=== PATIENT | female | born 1980 | race Caucasian/White ===

== ENCOUNTER → 2019-02-02 | Day surgery (SDC) | payer BC ==
[~2019-02-02] MED LIST: CITALOPRAM HBR20 MG PO; FENTANYL CITRATE/PF 100MCG/2 ML INJ ONE; GLUCAGON FOR INJ 1 MG VIAL ONE; HAIR, SKIN & N1 EAC1; HYOSCYAMINE SULFATE 0.5 MG/ML INJ ONE; IMMUNE BOOSTER PO; MIDAZOLAM HCL 2 MG/2 ML VIAL ONE; MULTI-VITAMIN1 EACH; PROPOFOL IV EMULSION 10 MG/ML 50 ML VIAL ONE
--- OUTSIDE RECORDS SUMMARY | 2019-02-02 05:48 | XMS REPORT | Clinical Summary ---
Author Author [facility] Organization [facility] Address Unknown Phone Unavailable Care Team Providers Care Candy Spreader Helper Name Role Phone Breann Coats PA-C PCP Allergies No Known Allergies Medications End Date Status Medication Sig Dispensed Refills Start Date Active citalopram (CeleXA) 20 MG Take 20 mg by 0 tablet mouth daily. Active NON FORMULARY Take 150 mg 0 by mouth nightly. Bio-TE DIN Active NATURE-THROID 65 mg TAKE 1 TABLET 0 tablet BY MOUTH 8 EVERY MORNING 30MINS BEFORE MEALS Active clonAZEPAM (KlonoPIN) 0.5 Take 0.5 mg 0 MG tablet by mouth 2 8 (two) times a day as needed. Active VITAMIN D2 50,000 unit Take 50,000 2 capsule Units by 8 mouth once a week. Active valACYclovir (VALTREX) TAKE 1 TABLET 1 500 MG tablet (500 MG) BY [address] 2 TIMES PER DAY FOR 3 DAYS NEEDED FOR OUTBREAK Active multivitamin with Take 1 tablet 0 minerals tablet by mouth daily. Active UNABLE TO FIND Genius 0 mushroom 09/01/2018 Discontinued diclofenac (VOLTAREN) 50 Take 50 mg by 0 MG EC tablet mouth 2 (two) times a day. 12/05/2018 Discontinued acetaminophen-codeine Take 1 tablet 0 (TYLENOL WITH CODEINE #3) by mouth 300-30 mg per tablet every 4 (four) hours as needed for mild pain or moderate pain. 09/01/2018 Discontinued levoFLOXacin (LEVAQUIN) Take 500 mg 0 500 MG tablet by mouth daily. 09/01/2018 Discontinued ondansetron (ZOFRAN) 4 MG Take 4 mg by 0 tablet mouth every 8 (eight) hours as needed for nausea or vomiting. 09/16/2018 Discontinued thyroid, pork, (ARMOUR Take 60 mg by 0 THYROID) 60 mg tablet mouth daily. 09/16/2018 Discontinued levothyroxine (SYNTHROID, Take 65 mcg 0 LEVOXYL) 75 mcg tablet by mouth every morning. 09/01/2018 fluconazole (DIFLUCAN) Take 1 tablet 2 tablet 0 150 MG tablet (150 mg 8 total) by mouth once for 1 dose. 09/11/2018 cefdinir (OMNICEF) 300 MG Take 1 20 capsule 0 capsule capsule (300 8 mg total) by mouth 2 (two) times a day for 10 days. 09/24/2018 oxybutynin (DITROPAN) 5 Take 1 tablet 20 tablet 0 MG tablet (5 mg total) 8 by mouth 3 (three) times a day as needed for bladder spasms for up to 7 days. 09/20/2018 phenazopyridine Take 1 tablet 20 tablet 0 (PYRIDIUM) 200 MG tablet (200 mg 8 total) by mouth 3 (three) times a day as needed for bladder spasms (dysuria) for up to 3 days. 09/22/2018 traMADol (ULTRAM) 50 mg Take 1 tablet 20 tablet 0 tablet (50 mg total) 8 by mouth every 8 (eight) hours as needed for moderate pain for up to 5 days. 10/16/2018 ciprofloxacin (CIPRO) 500 Take 1 tablet 1 tablet 0 MG tablet (500 mg 8 total) by mouth once for 1 dose. 11/27/2018 ciprofloxacin (CIPRO) 500 Take 1 tablet 14 tablet 0 MG tablet (500 mg 9 total) by mouth 2 (two) times a day for 7 days. 11/30/2018 fluconazole (DIFLUCAN) Take 1 tablet 5 tablet 1 150 MG tablet (150 mg 9 total) by mouth daily for 5 days. 12/27/2018 Discontinued sulfamethoxazole-trimetho Take 1 tablet 30 tablet 0 prim (BACTRIM) 400-80 mg by mouth 9 per tablet daily for 30 days. 01/10/2019 oxybutynin (DITROPAN) 5 Take 1 tablet 42 tablet 0 MG tablet (5 mg total) 9 by mouth every 8 (eight) hours for 14 days. 01/01/2019 nitrofurantoin, Take 1 10 capsule 0 macrocrystal-monohydrate, capsule (100 9 (MACROBID) 100 MG capsule mg total) by mouth 2 (two) times a day for 5 days. 01/06/2019 traMADol (ULTRAM) 50 mg Take 1 tablet 21 tablet 0 tablet (50 mg total) 9 by mouth every 6 (six) hours as needed for moderate pain for up to 21 doses. 01/13/2019 nitrofurantoin, Take 1 14 capsule 0 macrocrystal-monohydrate, capsule (100 9 (MACROBID) 100 MG capsule mg total) by mouth 2 (two) times a day for 7 days. 01/21/2019 traMADol (ULTRAM) 50 mg Take 1 tablet 8 tablet 0 tablet (50 mg total) 9 by mouth every 6 (six) hours as needed for moderate pain for up to 2 days. Status Hospital, Clinic, or Ordered Dose Route Frequency Start End Date Other Facility Date Administered Medication Ended gentamicin (GARAMYCIN) 80 mg IM once 01/21/20 injection 80 19 9 mgIndications: Retained ureteral stent, Post-operative state Active Problems Problem Noted Date Ureteral stricture, left 12/26/2018 Hydronephrosis with ureteral stricture, not elsewhere classified 08/29/2018 Mass of cecum 08/29/2018 Sepsis 08/28/2018 Encounters Care Team Description Date Type Specialty Regina Medrano MD Post-operative state (Primary Dx); Retained ureteral stent; Hydronephrosis with urinary obstruction due to ureteral calculus 01/28/2019 Orders Only Urology Regina Medrano MD Retained ureteral stent (Primary Dx); Post-operative state 01/20/2019 Procedure visit Regina Nagel MD 01/20/2019 Telephone Regina Nagel MD 01/20/2019 Transcribe Access Orders Regina Medrano MD 01/19/2019 Telephone Regina Nagel MD 01/14/2019 Telephone Regina Nagel MD Post-operative state (Primary Dx) 01/06/2019 Office Visit Urology Regina Medrano MD Hydronephrosis with urinary obstruction due to ureteral calculus; Hydronephrosis with ureteral stricture, not elsewhere classified 01/05/2019 Hospital Radiology Encounter Regina Medrano MD Hydronephrosis with urinary obstruction due to ureteral calculus (Primary Dx); Hydronephrosis with ureteral stricture, not elsewhere classified 12/31/2018 Orders Only Urology Regina Medrano MD 12/30/2018 Telephone Urology Regina Medrano MD ROBOTIC ASSISTED LEFT URETERAL REIMPLANT, LEFT URETERAL STENT PLACEMENT, PSOAS HITCH 12/26/2018 Surgery Urology Anni Koenig MD 12/26/2018 Anesthesia Urology Event Regina Medrano MD 12/26/2018 [facility] General Internal Medicine - Encounter 12/27/2018 Regina Medrano MD Preop examination (Primary Dx) 12/08/2018 Pre-Admit Pre-Admission Testing Testing Appointment Rina Cintron MA Urinary tract infection without hematuria, site unspecified (Primary Dx) 11/20/2018 Orders Only General Surgery Jay Ham MD Hydronephrosis with urinary obstruction due to ureteral calculus (Primary Dx); Hydronephrosis with ureteral stricture, not elsewhere classified 11/18/2018 Office Visit UrologJay Luna MD Hydronephrosis with urinary obstruction due to ureteral calculus 11/17/2018 Hospital Radiology Encounter Rina Cintron MA Hydronephrosis with renal and ureteral calculous obstruction (Primary Dx) 10/27/2018 Orders Only Urology Jay Ham MD Hydronephrosis with urinary obstruction due to ureteral calculus (Primary Dx) 10/16/2018 Procedure visit UrologJay Luna MD 09/18/2018 Telephone Urology Lucero Chavez MD 09/17/2018 Anesthesia General Surgery Event Jay Ham MD CYSTO, URETEROSCOPY w/ Balloon Dilation of Ureteral Or Laser Incision of Ureteral Stricture-Left 09/17/2018 Surgery General Surgery Jay Ham MD Preop testing (Primary Dx); Hydronephrosis with ureteral calculus 09/17/2018 Hospital General Surgery Encounter Lucero Chavez MD 08/29/2018 Anesthesia General Surgery Event Jay Ham MD Cysto, Left Retrograde Pyelogram, Left Ureteral Stent Placement 08/29/2018 Surgery General Surgery Nazario Titus MD Sepsis, due to unspecified organism (HCC) (Primary Dx); Hydronephrosis with urinary obstruction due to ureteral calculus; Mass of cecum 08/28/2018 [facility] General Internal Medicine - Encounter 09/01/2018 Nazario Titus MD 08/28/2018 Orders Only General Internal Medicine after 02/01/2018 Immunizations Name Dates Previously Given Next Due FLUCELVAX QUAD PF (0.5mL 08/31/2018 syringe) Pneumococcal 08/31/2018 Polysaccharide Family History Medical History Relation Name Comments Hypertension Brother Diabetes Father Hypertension Father Miscarriages / Maternal Stillbirths Grandmother Diabetes Mother Hyperlipidemia Mother Diabetes Paternal Grandmother Stroke Paternal Grandmother Relation Name Status Comments Brother Alive Father Alive Maternal Grandmother Alive Mother Alive Paternal Grandmother Social History Date Tobacco Use Types Packs/Day Years Used Quit: 08/29/2015 Former Smoker Cigarettes 1 12 Smokeless Tobacco: Never Used Alcohol Use Drinks/Week oz/Week Comments Yes occasionally Sex Assigned at Date Recorded Not on file Industry Job Start Date Occupation Not on file Not on file Not on file Travel End Travel History Travel Start No recent travel history available. Last Filed Vital Signs Time Taken Vital Sign Reading 12/27/2018 7:58 AM MR TEACHER Blood Pressure 111/70 12/27/2018 7:58 AM MR TEACHER Pulse 60 12/27/2018 7:58 AM MR TEACHER Temperature 35.7 C (96.3 F) 12/27/2018 7:58 AM MR TEACHER Respiratory Rate 20 12/27/2018 7:58 AM MR TEACHER Oxygen Saturation 98% - Inhaled Oxygen - Concentration 12/26/2018 6:22 AM MR TEACHER Weight 83.6 kg (184 lb 6 oz) 12/26/2018 6:22 AM MR TEACHER Height 160 cm (5' 3") 12/26/2018 6:22 AM MR TEACHER Body Mass Index 32.66 Plan of Treatment Care Team Description Date Type Specialty Regina Medrano MD [address] [place] [address] [phone] 03/23/2019 Appointment Radiology Regina Medrano MD [address] [place] [address] 03/23/2019 Appointment Radiology Regina Medrano MD [address] [place] [address] 03/30/2019 Office Visit Urology Health Maintenance Due Date Last Done Comments CERVICAL CANCER SCREENING 2003 INFLUENZA VACCINE 05/21/2019 08/31/2018 Implants Device Identifier Shelf Expiration Date Model / Serial / Lot Implanted Type Area Manufactur er 07/02/2021 225 [id number] / / [id number] Kit Dilat Cath Baln 18fr 5.8fr Surgical Left: Ureter, MICROVASIV 0.038in [id number] 1.9x6mm - Implants; Lime E [id number] Expanders; Implanted: Qty: 1 on 09/17/2018 by Extenders; Jay Ham MD Surgical Wires [id number] / / Clip Ligtng Hem-O-Kurt Endoscpc Aplr Surgical N/A: N/A WECK [facility] - [id number] Implants; CLOSURE Implanted: Qty: 1 on 12/26/2018 by Expanders; SYSTEMS Regina Medrano MD Extenders; Surgical Wires 12/26/2020 [id number] / / [id number] Stent Set Ureteral Universa Firm Surgical Left: Ureter, COOK 7fr X 28cm - [id number] Stents Lime UROLOGICAL Implanted: 08/29/2018 (Quantity not on file) 04/20/2021 [id number] / / [id number] Stent Uretl Polrs Ult 2drmtr 7fr Urological N/A: N/A BSC 26cm Hydroplus W/O Gw - [id number] Implants UROLOGY Implanted: Qty: 1 on 09/17/2018 by or Sets Jay Ham MD 10/26/2021 [id number] / / [id number] Stent Uretl Polrs Ult 2drmtr 6fr Urological N/A: N/A BSC 26cm Hydroplus W/O Gw - [id number] Implants UROLOGY Implanted: Qty: 1 on 12/26/2018 by or Regina Irby MD Procedures Comments Procedure Name Priority Date/Time Associated Diagnosis POC URINALYSIS DIPSTICK Routine 01/20/2019 Retained ureteral stent 8:47 AM CDT URINE CULTURE Routine 01/06/2019 Post-operative state 12:19 PM CDT POC UROFLOWMETRY Routine 01/06/2019 Post-operative state 12:17 PM CDT [id number] Routine 01/06/2019 Post-operative state 12:16 PM CDT FL CYSTOGRAM MINIMUM 3 VW Routine 01/05/2019 Hydronephrosis with 10:11 AM CDT urinary obstruction due to ureteral calculus Hydronephrosis with ureteral stricture, not elsewhere classified ESTIMATED GFR Routine 12/27/2018 4:56 AM MR TEACHER BASIC METABOLIC PANEL Routine 12/27/2018 4:56 AM MR TEACHER HC COMPLETE BLD COUNT Routine 12/27/2018 W/AUTO DIFF 4:50 AM MR TEACHER XR ABDOMEN 1 VW PORTABLE STAT 12/26/2018 1:39 PM MR TEACHER ESTIMATED GFR STAT 12/26/2018 11:30 AM MR TEACHER BASIC METABOLIC PANEL STAT 12/26/2018 11:30 AM MR TEACHER HC COMPLETE BLD COUNT STAT 12/26/2018 W/AUTO DIFF 11:30 AM MR TEACHER TX AN ELECTIVE Routine 12/26/2018 ENDOTRACHEAL AIRWAY 7:59 AM MR TEACHER Procedure Note - Gita Neville CRNA - 12/26/2018 7:59 AM MR TEACHER Airway Date/Time: 12/26/2018 8:00 AM Performed by: Gita Neville CRNA Authorized by: Anni Koch MD Location: OR Urgency: Elective Anesthesio logist: Anni Koch MD Resident/C RNA/AA: Gita Neville CRNA Preoxygena oniel with 100% O2: Yes C-spine Precaution s Maintained Throughout : Yes Mask Ventilatio n: Easy mask Final Airway Type: Endotrache al airway Final Endotrache al Airway: ETT Technique Used: Direct laryngosco py Devices/Me thods Used in Placement: Intubatin g stylet Insertion Site: Oral Blade Type: Mcmahon Laryngosco pe Blade/Vide olaryngosc ope Blade Size: 2 ETT Size (mm): 7.0 Measured from: Lips ETT to Lips (cm): 22 Placement Verified by: CO2 detection, direct visualizat ion and equal breath sounds Laryngosco pic view: Grade I - full view of glottis Rapid Sequence Induction (RSI): No Number of Attempts at Approach: 1 Eyes taped after LOLR, atraumatic DL, lips and teeth unchanged from preop conditions REIMPLANTATION, URETER, 12/26/2018 Ureteral stricture, left LAPAROSCOPIC, 7:30 AM MR TEACHER ROBOT-ASSISTED Case Notes XI Special Needs XI, POSSIBLE EXTENDED RECOVERY ESTIMATED GFR Routine 12/08/2018 9:16 AM MR TEACHER BASIC METABOLIC PANEL Routine 12/08/2018 Preop examination 9:16 AM MR TEACHER PARTIAL THROMBOPLASTIN Routine 12/08/2018 Preop examination TIME (PTT) 9:16 AM MR TEACHER PROTHROMBIN TIME WITH INR Routine 12/08/2018 Preop examination 9:16 AM MR TEACHER TYPE AND SCREEN Routine 12/08/2018 Preop examination 9:16 AM MR TEACHER CBC HEMOGRAM Routine 12/08/2018 Preop examination 9:16 AM MR TEACHER URINALYSIS, AUTOMATED Routine 11/25/2018 Hydronephrosis with WITH MICROSCOPY 3:38 PM MR TEACHER urinary obstruction due to ureteral calculus URINE CULTURE Routine 11/25/2018 Hydronephrosis with 3:38 PM MR TEACHER urinary obstruction due to ureteral calculus POC URINALYSIS DIPSTICK Routine 11/25/2018 Hydronephrosis with 1:31 PM MR TEACHER urinary obstruction due to ureteral calculus URINE CULTURE Routine 11/20/2018 Urinary tract infection 11:41 AM MR TEACHER without hematuria, site unspecified NM RENAL SCAN WFLOW FUNCT Routine 11/17/2018 Hydronephrosis with SGL INT W/MAG 3 10:33 AM MR TEACHER urinary obstruction due to ureteral calculus CYSTO W/STENT REMOVAL Routine 10/16/2018 Hydronephrosis with SIMPLE 11:30 AM MR TEACHER urinary obstruction due to ureteral calculus TX AN ELECTIVE Routine 09/17/2018 SUPRAGLOTTIC AIRWAY 3:00 PM MR TEACHER Procedure Note - Nguyen Day CRNA - 09/17/2018 3:00 PM MR TEACHER ANESTHESIA INTUBATION Performed by: Nguyen Day CRNA Authorized by: Nguyen Day CRNA Location: OR Urgency: Elective Anesthesio logist: Lucero Chavez MD Resident/C RNA/AA: Nguyen Day CRNA Preoxygena oniel with 100% O2: Yes C-spine Precaution s Maintained Throughout : Yes Mask Ventilatio n: Easy mask Final Airway Type: Supraglott ic airway Final LMA: Unique SURGICAL PATHOLOGY Routine 09/17/2018 REQUEST 8:55 AM MR TEACHER ESTIMATED GFR Routine 08/31/2018 5:40 AM MR TEACHER HC COMPLETE BLD COUNT Routine 08/31/2018 W/AUTO DIFF 5:40 AM MR TEACHER BASIC METABOLIC PANEL Routine 08/31/2018 5:40 AM MR TEACHER THYROID STIMULATING Routine 08/30/2018 HORMONE 4:[address] ABDOMEN PELVIS W WO Routine 08/29/2018 CONTRAST 8:03 PM MR TEACHER FL < 1 HOUR Routine 08/29/2018 5:41 PM MR TEACHER TX AN ELECTIVE Routine 08/29/2018 SUPRAGLOTTIC AIRWAY 5:18 PM MR TEACHER Procedure Note - Arabella Chau CRNA - 08/29/2018 5:18 PM MR TEACHER Airway Date/Time: 08/29/2018 5:13 PM Performed by: ARABELLA CHAU Authorized by: LUCERO CHAVEZ Location: OR Urgency: Elective Difficult Airway: No Resident/C RNA/AA: ARABELLA CHAU Performed by: resident/C RNA/AA Preoxygena oniel with 100% O2: Yes C-spine Precaution s Maintained Throughout : Yes Mask Ventilatio n: Not attempted Final Airway Type: Supraglott ic airway Final LMA: Classic LMA Size: 4 Number of Attempts at Approach: 1 HCG QUALITATIVE, SERUM STAT 08/29/2018 SCREEN 5:23 AM MR TEACHER CARCINOEMBRYONIC ANTIGEN Routine 08/29/2018 (CEA) 5:23 AM MR TEACHER ESTIMATED GFR Timed 08/29/2018 5:23 AM MR TEACHER BASIC METABOLIC PANEL Timed 08/29/2018 5:23 AM MR TEACHER HC COMPLETE BLD COUNT Timed 08/29/2018 W/AUTO DIFF 5:23 AM MR TEACHER LACTIC ACID LEVEL Timed 08/29/2018 5:23 AM MR TEACHER LACTIC ACID LEVEL, SEPSIS Timed 08/29/2018 - NOW AND REPEAT 2X EVERY 2:30 AM MR TEACHER 3 HOURS LACTIC ACID LEVEL, SEPSIS Timed 08/28/2018 - NOW AND REPEAT 2X EVERY 11:19 PM MR TEACHER [address] ABDOMEN PELVIS WO STAT 08/28/2018 CONTRAST 9:53 PM MR TEACHER URINALYSIS SCREEN AND Routine 08/28/2018 MICROSCOPY, WITH REFLEX 8:35 PM MR TEACHER TO CULTURE GRAM STAIN Routine 08/28/2018 8:35 PM MR TEACHER URINE CULTURE Routine 08/28/2018 8:35 PM MR TEACHER MANUAL DIFFERENTIAL Timed 08/28/2018 7:44 PM MR TEACHER ESTIMATED GFR Timed 08/28/2018 7:44 PM MR TEACHER LACTIC ACID LEVEL, SEPSIS Timed 08/28/2018 - NOW AND REPEAT 2X EVERY 7:44 PM MR TEACHER 3 HOURS COMPREHENSIVE METABOLIC Timed 08/28/2018 PANEL 7:44 PM MR TEACHER CBC WITH PLATELET AND Timed 08/28/2018 DIFFERENTIAL 7:44 PM MR TEACHER BLOOD CULTURE, AEROBIC & Routine 08/28/2018 ANAEROBIC 7:44 PM MR TEACHER BLOOD CULTURE, AEROBIC & Routine 08/28/2018 ANAEROBIC 7:41 PM MR TEACHER after 02/01/2018 Results * POC urinalysis dipstick (01/20/2019 8:47 AM CDT) Only the most recent of 2 results within the time period is included. Color urine, POC Yellow Clarity urine, POC Clear Glucose urine, POC Negative Negative Bilirubin urine, POC Negative Negative Ketones urine, POC Negative Negative Specific gravity urine, 1.015 1.005 - 1.030 POC Blood urine, POC Moderate (A) Negative pH urine, POC 7.0 5.0, 5.5, 6.0, 6.5, 7.0, 7.5, 8.0, 8.5 Protein urine, POC 1+ (A) Negative Urobilinogen urine, POC <2.0 <2.0 Nitrite urine, POC Negative Negative Leukocyte esterase urine, Large (A) Negative POC Specimen Urine * Urine culture (01/06/2019 12:19 PM CDT) Only the most recent of 4 results within the time period is included. Urine culture SEE NOTE [employer] Comment: [place] CULTURE, URINE, ROUTINE MICRO NUMBER:[id number] TEST STATUS: FINAL SPECIMEN SOURCE: NOT GIVEN SPECIMEN QUALITY:ADEQUATE RESULT: No Growth Specimen Urine Resulting Agency Comment Performing Organization Information: Site ID: [id number] Address: [address] [place] [id number] Director: Heidi Arriola Performing Organization Address City/State/Zipcode Phone Number [email or web address] [place] [phone] * POC uroflowmetry (01/06/2019 12:17 PM CDT) Flow rate 13 ml/s ml/sec Specimen Urine Impressions Performed At Peak Flow 13 ml/s Mean Flow 3 ml/s Voiding Time 47 sec Flow Time 16 sec Time to Peak Flow 4 sec Voided Volume 51 ml PVR 17 ml * POC BLADDER SCAN/PVR (01/06/2019 12:16 PM CDT) Volume 17mlComment: pvr Specimen Urine * FL Cystogram [place] 3 Views (01/05/2019 10:11 AM CDT) Narrative Performed At EXAMINATION:FL CYSTOGRAM MINIMUM 3 VW RADIANT CLINICAL HISTORY:N13.2 Hydronephrosis with renal and ureteral calculous obstruction, N13.1 Hydronephrosis with ureteral stricturenot elsewhere classified, post op state COMPARISON:None. TECHNIQUE: Cystogram was performed. Contrast was instilled into the bladder in a retrograde manner via Alex catheter. FLUOROSCOPIC TIME:0.3 minutes, 10 images, 71.23 mGy. FINDINGS: The bladder is normally distensible. The left ureteral catheter is present distal loop overlying the urinary bladder, proximal loop about the renal pelvis. No anastomotic leak is detected at the insertion site of the left ureter postoperatively. No filling defect, diverticulum or vesicoureteral reflux. No significant residual is seen in the bladder on post void image. IMPRESSION: No leak status post left ureteral re-implantation. I personally reviewed the images and the resident's findings and agree with the final report. [facility]-[id number] Procedure Note Interface, Radiology Results Incoming - 01/05/2019 10:41 AM CDT EXAMINATION: FL CYSTOGRAM MINIMUM 3 VW CLINICAL HISTORY: N13.2 Hydronephrosis with renal and ureteral calculous obstruction, N13.1 Hydronephrosis with ureteral stricture not elsewhere classified, post op state COMPARISON: None. TECHNIQUE: Cystogram was performed. Contrast was instilled into the bladder in a retrograde manner via Alex catheter. FLUOROSCOPIC TIME: 0.3 minutes, 10 images, 71.23 mGy. FINDINGS: The bladder is normally distensible. The left ureteral catheter is present distal loop overlying the urinary bladder, proximal loop about the renal pelvis. No anastomotic leak is detected at the insertion site of the left ureter postoperatively. No filling defect, diverticulum or vesicoureteral reflux. No significant residual is seen in the bladder on post void image. IMPRESSION: No leak status post left ureteral re-implantation. I personally reviewed the images and the resident's findings and agree with the final report. [facility]-[id number] Performing Organization Address City/[facility]/[place] [address] * Estimated GFR (12/27/2018 4:56 AM MR TEACHER) Only the most recent of 6 results within the time period is included. Estimated GFR 84 mL/min/1.73 m2 [facility] Comment: HOSPITAL CatergoryUnitsInte rpretation G1 >=90 Normal or high G2 60-89Mildly decreased [id number] Mildly to moderately decreased E5o47-52 Moderately to severely decreased G4 15-29Severely decreased G5 <15Kidney failure The eGFR was calculated using the Chronic Kidney Disease Epidemiology Collaboration (CKD-EPI) equation. Interpretation is based on recommendations of the National Kidney Foundation-Kidney Disease Outcomes Quality Initiative (NKF-KDOQI) published in 2014. Specimen Plasma specimen Performing Organization Address [facility] Phone Number [facility] [place] [address] PATHOLOGY AND [facility] MEDICINE [address] * Basic metabolic panel (12/27/2018 4:56 AM MR TEACHER) Only the most recent of 5 results within the time period is included. Sodium 139 135 - 148 mEq/L [facility] Potassium 4.1 3.5 - 5.0 mEq/L [facility] Chloride 105 98 - 112 mEq/L [facility] CO2 23 (L) 24 - 31 mEq/L [facility] Anion gap 11@ANIO 7 - 15 mEq/L [facility] BUN 13 6 - 20 mg/dL [facility] Creatinine 0.88 0.50 - 0.90 mg/dL [facility] Glucose 113 (H) 65 - 99 mg/dL [facility] Calcium 9.0 8.3 - 10.2 mg/dL [facility] Specimen Plasma specimen Performing Organization Address City/[facility] Phone Number [facility] [place] [address] PATHOLOGY AND GENOMIC MEDICINE [address] * CBC with platelet and differential (12/27/2018 4:50 AM MR TEACHER) Only the most recent of 5 results within the time period is included. WBC 13.65 (H) 4.50 - 11.00 k/uL [facility] RBC 3.79 (L) 4.20 - 5.50 m/uL [facility] HGB 11.2 (L) 12.0 - 16.0 g/dL [facility] HCT 35.1 (L) 37.0 - 47.0 % [facility] MCV 92.6 82.0 - 100.0 fL [facility] MCH 29.6 27.0 - 34.0 pg [facility] MCHC 31.9 31.0 - 37.0 g/dL [facility] RDW - SD 43.7 37.0 - 55.0 fL [facility] MPV 9.7 8.8 - 13.2 fL [facility] Platelet count 236 150 - 400 k/uL [facility] Nucleated RBC 0.00 /100 WBC [facility] Neutrophils 79.5 (H) 39.0 - 69.0 % [facility] Lymphocytes 11.4 (L) 25.0 - 45.0 % [facility] Monocytes 8.5 0.0 - 10.0 % [facility] Eosinophils 0.1 0.0 - 5.0 % [facility] Basophils 0.1 0.0 - 1.0 % [facility] Immature granulocytes 0.4Comment: "Immature 0.0 - 1.0 % [facility] granulocytes" (promyelocytes, HOSPITAL myelocytes, metamyelocytes) Specimen Blood Performing Organization Address City/State/Zipcode Phone Number [facility] DEPARTMENT OF [address] [place] [address] PATHOLOGY [place] [address] HOSPITAL * XR Abdomen 1 Vw Portable (12/26/2018 1:39 PM MR TEACHER) Narrative Performed At EXAM:XR ABDOMEN 1 VW PORTABLE RADIANT HISTORY:Abd painunspecified, Stent Placement COMPARISON:CT the abdomen and pelvis dated 08/29/2018 IMPRESSION: 1. Bowel gas pattern is nonobstructive. 2. The visualized osseous structures are intact. 3. A left double-J ureteral stent is in place. A drainage catheter projects over the left abdomen. [facility]-[id number] Procedure Note Interface, Radiology Results Incoming - 12/26/2018 1:51 PM MR TEACHER EXAM: XR ABDOMEN 1 VW PORTABLE HISTORY: Abd pain unspecified, Stent Placement COMPARISON: CT the abdomen and pelvis dated 08/29/2018 IMPRESSION: 1. Bowel gas pattern is nonobstructive. 2. The visualized osseous structures are intact. 3. A left double-J ureteral stent is in place. A drainage catheter projects over the left abdomen. [facility]-[id number] Performing Organization Address [facility] Services[facility] Phone Number [facility] [address] [place] [address] * Partial thromboplastin time, activated (12/08/2018 9:16 AM MR TEACHER) PTT 31.6 23.0 - 36.0 sec [facility] Comment: HOSPITAL PTT therapeutic range for unfractionated heparin is 61.0-112.0 seconds which corresponds to Anti-Xa 0.3-0.7 U/ml. Specimen Blood Performing Organization Address [facility] Phone Number [facility] [place] [place] [address] PATHOLOGY AND GENOMIC MEDICINE [address] * Prothrombin time with INR (12/08/2018 9:16 AM MR TEACHER) Prothrombin time 12.9 11.5 - 14.5 sec [facility] INR 1.0 [facility] Comment: HOSPITAL The International Normalized Ratio (INR) is a therapeutic monitoring tool for patients who are stable on oral anticoagulant therapy. An INR of 2.0-3.0 is suggested for deep vein thrombosis/pulmonary embolism. Specimen Blood Performing Organization Address [facility] Phone Number [facility] DEPARTMENT OF [address] [place] [address] PATHOLOGY AND GENOMIC MEDICINE [address] * CBC hemogram (12/08/2018 9:16 AM MR TEACHER) WBC 5.42 4.50 - 11.00 k/uL [facility] RBC 4.14 (L) 4.20 - 5.50 m/uL [facility] HGB 12.2 12.0 - 16.0 g/dL [facility] HCT 37.3 37.0 - 47.0 % [facility] MCV 90.1 82.0 - 100.0 fL [facility] MCH 29.5 27.0 - 34.0 pg [facility] MCHC 32.7 31.0 - 37.0 g/dL [facility] RDW - SD 42.1 37.0 - 55.0 fL [facility] MPV 9.7 8.8 - 13.2 fL [facility] Platelet count 279 150 - 400 k/uL [facility] Nucleated RBC 0.00 /100 WBC [facility] Specimen Blood Performing Organization Address City/[facility] Servicescode Phone Number [facility] [place] [address] PATHOLOGY AND GENOMIC MEDICINE [address] * Type and screen (12/08/2018 9:16 AM MR TEACHER) ABO grouping A [facility] Rh type POS [facility] Antibody screen (gel) NEG [facility] Specimen Blood Performing Organization Address [facility] Servicescowv Phone Number [facility] [place] [address] PATHOLOGY AND GENOMIC MEDICINE [address] * Urinalysis, automated with microscopy (11/25/2018 3:38 PM MR TEACHER) Color, UA YELLOW YELLOW [facility] Appearance CLEAR CLEAR [facility] Specific gravity, urine 1.007 1.001 - 1.035 [facility] pH, urine 6.5 5.0 - 8.0 [facility] Glucose, urine NEGATIVE NEGATIVE [facility] Bilirubin, UA NEGATIVE NEGATIVE [facility] Ketones, UA NEGATIVE NEGATIVE [facility] Occult blood, urine NEGATIVE NEGATIVE [facility] Protein, UA NEGATIVE NEGATIVE [facility] Nitrite, UA NEGATIVE NEGATIVE [facility] Leukocyte esterase, UA TRACE (A) NEGATIVE [facility] WBC, UA 0-5 < OR=5 /HPF [facility] RBC, UA NONE SEEN < OR=2 /HPF [facility] Squamous epithelial NONE SEEN < OR=5 /HPF [facility] cells, [facility]A [place] Bacteria, UA NONE SEEN NONE SEEN /HPF [facility] Hyaline casts, UA NONE SEEN NONE SEEN /LPF [facility] Specimen Urine Resulting Agency Comment Performing Organization Information: Site ID: [id number] Address: [address] [place] [id number] Director: Heidi Arriola Performing Organization Address City/State/[facility] Servicescode Phone Number [email or web address] [address] [address] * NM Renal Scan Wflow Funct Sgl Int W/Mag 3 (11/17/2018 10:33 AM MR TEACHER) Narrative Performed At [facility] Procedure:NM RENAL SCAN WFLOW FUNCT SGL INT W MAG 3 Clinical History:N13.2 Hydronephrosis with renal and ureteral calculous obstruction, left hydronephrosis Comparison:No prior nuclear renal scans. Technique: The patient was injected with 10 millicuries of [id number] intravenously, followed by dynamic imaging of the kidneys in the posterior projection for 40 minutes. At 20 minutes postinjection, the patient was injected with 42 mg Lasix IV. Findings: Moderately reduced perfusion and uptake in the left kidney. Excretion is also reduced, with partial, delayed washout in response to Lasix. Perfusion, uptake, and excretion in the right kidney are normal. Wash-out T(1/2) in response to Lasix=24 min (left kidney) Normal=< 10 min Indeterminate=10-20 min Delayed=>20 min SPLIT FUNCTION: Left kidney=27% Right kidney=73% IMPRESSION: 1.Moderately reduced perfusion and function in the left kidney. 2.Given the reduced function, the reduced excretion from the left collecting system may be physiological. High-grade obstruction is not strongly suggested, but not excluded. Please note that the Lasix renal scan is not very accurate in kidneys with reduced function. 3.Normal perfusion and function in the right kidney with no evidence of obstruction. [facility]-[id number] Procedure Note Interface, Radiology Results Incoming - 11/17/2018 11:31 AM MR TEACHER Procedure: NM RENAL SCAN WFLOW FUNCT SGL INT W MAG 3 Clinical History: N13.2 Hydronephrosis with renal and ureteral calculous obstruction, left hydronephrosis Comparison: No prior nuclear renal scans. Technique: The patient was injected with 10 millicuries of [id number] intravenously, followed by dynamic imaging of the kidneys in the posterior projection for 40 minutes. At 20 minutes postinjection, the patient was injected with 42 mg Lasix IV. Findings: Moderately reduced perfusion and uptake in the left kidney. Excretion is also reduced, with partial, delayed washout in response to Lasix. Perfusion, uptake, and excretion in the right kidney are normal. Wash-out T(1/2) in response to Lasix=24 min (left kidney) Normal=< 10 min Indeterminate=10-20 min Delayed=>20 min SPLIT FUNCTION: Left kidney=27% Right kidney=73% IMPRESSION: 1. Moderately reduced perfusion and function in the left kidney. 2. Given the reduced function, the reduced excretion from the left collecting system may be physiological. High-grade obstruction is not strongly suggested, but not excluded. Please note that the Lasix renal scan is not very accurate in kidneys with reduced function. 3. Normal perfusion and function in the right kidney with no evidence of obstruction. [facility]-[id number] Performing Organization Address City/State/Zipcode Phone Number [facility] [address] [place] [address] * Cysto w/ Stent Removal/Simple (10/16/2018 11:30 AM MR TEACHER) Narrative Performed At Jay Hma MD 10/16/2018 12:11 PM Cysto w/ Stent Removal/Simple Date/Time: 10/16/2018 12:09 PM Performed by: Jay Ham MD Authorized by: Jay Ham MD Consent: Verbal consent obtained. Written consent obtained. Risks and benefits: risks, benefits and alternatives were discussed Consent given by: patient Patient understanding: patient states understanding of the procedure being performed Patient consent: the patient's understanding of the procedure matches consent given Procedure consent: procedure consent matches procedure scheduled Relevant documents: relevant documents present and verified Test results: test results available and properly labeled Required items: required blood products, implants, devices, and special equipment available Patient identity confirmed: verbally with patient and provided demographic data Time out: Immediately prior to procedure a "time out" was called to verify the correct patient, procedure, equipment, pc support specialist and site/side marked as required. Preparation: Patient was prepped and draped in the usual sterile fashion. Local anesthesia used: yes Anesthesia: Local anesthesia used: yes Local Anesthetic: lidocaine/prilocaine emulsion Sedation: Patient sedated: no Patient tolerance: Patient tolerated the procedure well with no immediate complications Comments: Flexible cystoscope was advanced into the bladder.The ureteral stent was identified, grasped and extracted intact.Patient tolerated procedure well. * Surgical pathology request (09/17/2018 8:55 AM MR TEACHER) [facility] DEPARTMENT OF PATHOLOGY AND GENOMIC MEDICINE Surgical pathology report See link below for PDF Lab [facility] DEPARTMENT OF Report PATHOLOGY AND GENOMIC MEDICINE Result status This is Final Report for [facility] DEPARTMENT OF [id number] PATHOLOGY AND GENOMIC MEDICINE Performing Organization Address City/State/Zipcode Phone Number [address] [address] PATHOLOGY AND GENOMIC MEDICINE * Thyroid stimulating hormone (08/30/2018 4:25 AM MR TEACHER) TSH 0.33 0.27 - 4.20 uIU/mL [facility] DEPARTMENT OF PATHOLOGY AND GENOMIC MEDICINE Specimen Plasma specimen Performing Organization Address City/[facility] Servicescode Phone Number [place] [phone] PATHOLOGY AND GENOMIC MEDICINE * CT Abdomen Pelvis W Wo Contrast (08/29/2018 8:03 PM MR TEACHER) Narrative Performed At EXAMINATION:CT ABDOMEN PELVIS W WO CONTRAST [facility] CLINICAL HISTORY:Nauseavomiting, left hydronephrosis TECHNIQUE: CT of the abdomen and pelvis was performed without contrast utilizing renal stone protocol. Subsequently, postcontrast CT of the abdomen and pelvis was obtained with multiphase renal mass and CT urogram protocol. Sagittal and coronal computerized reformatted images were also obtained. COMPARISON:August 28, 2018 FINDINGS: Abdomen: A stent coils in the left renal pelvis. There is continued moderate left-sided hydronephrosis of this is slightly decreased from prior. The left kidney remains edematous Atelectasis in the lung bases The liver, spleen, gallbladder, pancreas and adrenals are within normal limits The small bowel and the colon are within normal limits Pelvis: No significant lymphadenopathy, solid masses are present The bladder is distended. Small amount of high density material is present layering inferiorly within the bladder most likely representing contrast IMPRESSION: Interval placement of a left ureteral stent which coils in the left renal pelvis. There is continued moderate left-sided hydronephrosis or masses decreased from prior [facility]-[id number] Procedure Note Hm Interface, Radiology Results Incoming - 08/29/2018 8:12 PM MR TEACHER EXAMINATION: CT ABDOMEN PELVIS W WO CONTRAST CLINICAL HISTORY: Nausea vomiting, left hydronephrosis TECHNIQUE: CT of the abdomen and pelvis was performed without contrast utilizing renal stone protocol. Subsequently, postcontrast CT of the abdomen and pelvis was obtained with multiphase renal mass and CT urogram protocol. Sagittal and coronal computerized reformatted images were also obtained. COMPARISON: August 28, 2018 FINDINGS: Abdomen: A stent coils in the left renal pelvis. There is continued moderate left-sided hydronephrosis of this is slightly decreased from prior. The left kidney remains edematous Atelectasis in the lung bases The liver, spleen, gallbladder, pancreas and adrenals are within normal limits The small bowel and the colon are within normal limits Pelvis: No significant lymphadenopathy, solid masses are present The bladder is distended. Small amount of high density material is present layering inferiorly within the bladder most likely representing contrast IMPRESSION: Interval placement of a left ureteral stent which coils in the left renal pelvis. There is continued moderate left-sided hydronephrosis or masses decreased from prior [facility]-[id number] Performing Organization Address City/[facility] Services[facility] Phone Number [facility] [address] [place] [address] * [place] < 1 Hour (08/29/2018 5:41 PM MR TEACHER) Narrative Performed At IMPRESSION:C-arm Fluoroscopy under 1 hour was provided in the OR for the [facility] referring physician.A radiologist was not present during the procedure. Refer to the Operative report issued by the performing provider for procedure details. Procedure Note Interface, Radiology Results Incoming - 08/29/2018 5:54 PM MR TEACHER IMPRESSION: C-arm Fluoroscopy under 1 hour was provided in the OR for the referring physician. A radiologist was not present during the procedure. Refer to the Operative report issued by the performing provider for procedure details. Performing Organization Address [facility] Servicescode Phone Number [facility] [address] [place] [address] * hCG qualitative, serum screen (08/29/2018 5:23 AM MR TEACHER) hCG qualitative, serum Negative [facility] DEPARTMENT OF Comment: PATHOLOGY AND The manufacturers stated GENOMIC MEDICINE sensitivity of HcG test for serum is >/=10 mIU/ml and urine is >/=20mIU/ml. Specimen Blood Performing Organization Address City/State/Zipcode Phone Number [facility] DEPARTMENT OF [address] [place] [address] PATHOLOGY AND GENOMIC MEDICINE * Lactic acid level (08/29/2018 5:23 AM MR TEACHER) Lactic acid 0.9 0.5 - 2.2 mmol/L [facility] DEPARTMENT OF PATHOLOGY AND GENOMIC MEDICINE Specimen Blood Performing Organization Address City/[facility]/Zipcode Phone Number [facility] DEPARTMENT OF [address] [place] [address] PATHOLOGY AND [facility] MEDICINE * Carcinoembryonic antigen (CEA) (08/29/2018 5:23 AM MR TEACHER) CEA <1.2 0.0 - 3.8 ng/mL [facility] DEPARTMENT OF Comment: PATHOLOGY AND Reference range for heavy [facility] MEDICINE smokers:0.0 - 5.5 ng/mL The GEMMA Cabrera 8000 CEA immunoassay was used. Results obtained with different assay methods or kits should not be used interchangeably and may be different. Specimen Serum Performing Organization Address City/[facility]/Zipcode Phone Number [facility] OF [address] [place] [address] PATHOLOGY AND GENOMIC MEDICINE * Lactic acid level, SEPSIS - Now and repeat 2x every 3 hours (08/29/2018 2:30 AM MR TEACHER) Only the most recent of 3 results within the time period is included. Lactic acid 3.5 (HH) 0.5 - 2.2 mmol/L [facility] DEPARTMENT OF Comment: PATHOLOGY AND Results called to and read [facility] back by ROMELIA CA[employer]LE [employer] SERVICE CONSULTANT, RODRIGUEZ BELTRAN RN/2E at 03:12 08/29/2018 DXP. Specimen Blood Performing Organization Address City/[facility] Servicescode Phone Number [facility] OF [address] [place] [address] PATHOLOGY AND GENOMIC MEDICINE * CT Abdomen Pelvis Wo Contrast (08/28/2018 9:53 PM MR TEACHER) Narrative Performed At CT ABDOMEN PELVIS WO CONTRAST [facility] CLINICAL INDICATION:Abd painunspecified TECHNIQUE:Multidetector CT of the abdomen and pelvis was performed without intravenous contrast with multiplanar reconstructions. CT imaging was performed with iterative reconstruction technique and/or automated exposure control to reduce radiation dose. COMPARISON:None FINDINGS: Please note, the lack of intravenous contrast limits evaluation of the abdominal and pelvic viscera. LOWER THORAX:Aside from mild bibasilar atelectasis, the visualized lungs are clear. LIVER:Normal. BILIARY:Normal. SPLEEN:Normal. PANCREAS:Normal. ADRENALS:Normal. KIDNEYS:There is moderate left hydroureteronephrosis without identification of a urinary tract calculus or obstructing urinary tract lesion. There is associated left renal and perirenal edema. The right kidney is normal in appearance. GI:Large and small bowel are normal in caliber.There are no inflammatory changes.There is a 2.5 x 2.4 cm intraluminal filling defect within the cecum, concerning for a mass. VASCULAR:Unremarkable LYMPH NODES:No enlarged lymph nodes in the abdomen or pelvis. PELVIS:The urinary bladder and uterus are normal in appearance. BONES:There are no acute osseous abnormalities. OTHER:There is no ascites or pneumoperitoneum. IMPRESSION: 1. Moderate left hydroureteronephrosis and left perirenal edema without evidence of a urinary tract calculus or obstructing urinary tract lesion. These findings are suggestive of a recently passed stone with less likely considerations including a urinary tract infection or distal ureteral stricture. If the patient's symptoms persist, a follow-up CT urogram would be recommended for better evaluation of the urinary tract. 2. There is a 2.5 x 2.4 cm intraluminal mass within the cecum that has an imaging appearance favoring an adenoma. Some other possibilities include GIST and carcinoid tumor. Further evaluation is recommended with a colonoscopy. [facility]-[id number] Procedure Note [facility], Radiology Results Incoming - 08/28/2018 10:[address] ABDOMEN PELVIS WO CONTRAST CLINICAL INDICATION: Abd pain unspecified TECHNIQUE: Multidetector CT of the abdomen and pelvis was performed without intravenous contrast with multiplanar reconstructions. CT imaging was performed with iterative reconstruction technique and/or automated exposure control to reduce radiation dose. COMPARISON: None FINDINGS: Please note, the lack of intravenous contrast limits evaluation of the abdominal and pelvic viscera. LOWER THORAX: Aside from mild bibasilar atelectasis, the visualized lungs are clear. LIVER: Normal. BILIARY: Normal. SPLEEN: Normal. PANCREAS: Normal. ADRENALS: Normal. KIDNEYS: There is moderate left hydroureteronephrosis without identification of a urinary tract calculus or obstructing urinary tract lesion. There is associated left renal and perirenal edema. The right kidney is normal in appearance. GI: Large and small bowel are normal in caliber. There are no inflammatory changes. There is a 2.5 x 2.4 cm intraluminal filling defect within the cecum, concerning for a mass. VASCULAR: Unremarkable LYMPH NODES: No enlarged lymph nodes in the abdomen or pelvis. PELVIS: The urinary bladder and uterus are normal in appearance. BONES: There are no acute osseous abnormalities. OTHER: There is no ascites or pneumoperitoneum. IMPRESSION: 1. Moderate left hydroureteronephrosis and left perirenal edema without evidence of a urinary tract calculus or obstructing urinary tract lesion. These findings are suggestive of a recently passed stone with less likely considerations including a urinary tract infection or distal ureteral stricture. If the patient's symptoms persist, a follow-up CT urogram would be recommended for better evaluation of the urinary tract. 2. There is a 2.5 x 2.4 cm intraluminal mass within the cecum that has an imaging appearance favoring an adenoma. Some other possibilities include GIST and carcinoid tumor. Further evaluation is recommended with a colonoscopy. [facility]-[id number] Performing Organization Address City/State/Zipcode Phone Number [place] [address] [place] [address] * Urinalysis screen and microscopy, with reflex to culture (08/28/2018 8:35 PM MR TEACHER) Specimen site Clean catch [facility] DEPARTMENT OF PATHOLOGY AND GENOMIC MEDICINE Color, UA Straw [facility] DEPARTMENT OF PATHOLOGY AND GENOMIC MEDICINE Appearance, UA Clear [facility] DEPARTMENT OF PATHOLOGY AND GENOMIC MEDICINE Specific gravity, UA 1.006 1.001 - 1.035 [facility] DEPARTMENT OF PATHOLOGY AND GENOMIC MEDICINE pH, UA 7.0 5.0 - 8.5 [facility] DEPARTMENT OF PATHOLOGY AND GENOMIC MEDICINE Protein, UA 1+ (A) Negative [facility] DEPARTMENT OF PATHOLOGY AND GENOMIC MEDICINE Glucose, UA Negative Negative [facility] DEPARTMENT OF PATHOLOGY AND GENOMIC MEDICINE Ketones, UA Trace (A) Negative [facility] DEPARTMENT OF PATHOLOGY AND GENOMIC MEDICINE Bilirubin, UA Negative Negative [facility] DEPARTMENT OF PATHOLOGY AND GENOMIC MEDICINE Blood, UA Small (A) Negative [facility] DEPARTMENT OF PATHOLOGY AND GENOMIC MEDICINE Nitrite, UA Negative Negative [facility] DEPARTMENT OF PATHOLOGY AND GENOMIC MEDICINE Urobilinogen, UA Negative <2.0 [facility] DEPARTMENT OF PATHOLOGY AND GENOMIC MEDICINE Leukocyte esterase, UA Small (A) Negative [facility] DEPARTMENT OF PATHOLOGY AND GENOMIC MEDICINE Epithelial cells, UA Few /HPF [facility] DEPARTMENT OF PATHOLOGY AND GENOMIC MEDICINE WBC, UA 8 (H) 0 - 5 /HPF [facility] DEPARTMENT OF PATHOLOGY AND GENOMIC MEDICINE RBC, UA 2 0 - 5 /HPF [facility] DEPARTMENT OF PATHOLOGY AND GENOMIC MEDICINE Bacteria, UA Trace None seen [facility] DEPARTMENT OF PATHOLOGY AND GENOMIC MEDICINE Yeast, UA None seen [facility] DEPARTMENT OF PATHOLOGY AND GENOMIC MEDICINE Yeast with pseudohyphae, None seen [facility] DEPARTMENT OF PATHOLOGY AND GENOMIC MEDICINE Specimen Urine Performing Organization Address City/State/Zipcode Phone Number [facility] DEPARTMENT OF [address] [place] [address] PATHOLOGY AND GENOMIC MEDICINE * Gram stain (08/28/2018 8:35 PM MR TEACHER) Gram stain result Rare WBC's [facility] DEPARTMENT OF No organisms seen PATHOLOGY AND Comment: GENOMIC MEDICINE Specimen Information Specimen Source: Urine Specimen Site: Clean catch Specimen Urine Performing Organization Address City/State/Zipcode Phone Number [facility] DEPARTMENT OF [address] [place] [address] PATHOLOGY AND GENOMIC MEDICINE * Manual differential (08/28/2018 7:44 PM MR TEACHER) Manual differential PERFORMED [facility] DEPARTMENT OF PATHOLOGY AND GENOMIC MEDICINE Neutrophils 85.0 (H) 36.0 - 66.0 % [facility] DEPARTMENT OF PATHOLOGY AND GENOMIC MEDICINE Lymphocytes 6.0 (L) 24.0 - 44.0 % [facility] DEPARTMENT OF PATHOLOGY AND GENOMIC MEDICINE Monocytes 4.0 0.0 - 6.0 % [facility] DEPARTMENT OF PATHOLOGY AND GENOMIC MEDICINE Eosinophils 0.0 0.0 - 6.0 % [facility] DEPARTMENT OF PATHOLOGY AND GENOMIC MEDICINE Basophils 0.0 0.0 - 1.2 % [facility] DEPARTMENT OF PATHOLOGY AND GENOMIC MEDICINE Metamyelocytes 1 0 - 1 % [facility] DEPARTMENT OF PATHOLOGY AND GENOMIC MEDICINE Myelocytes 2 (H) 0 - 1 % [facility] DEPARTMENT OF PATHOLOGY AND GENOMIC MEDICINE Promyelocytes 0 0 - 1 % [facility] DEPARTMENT OF PATHOLOGY AND GENOMIC MEDICINE Reactive lymphocytes 2.0 [facility] DEPARTMENT OF PATHOLOGY AND GENOMIC MEDICINE Platelet slide review Bandar adequate [facility] DEPARTMENT OF PATHOLOGY AND GENOMIC MEDICINE Anisocytosis few [facility] DEPARTMENT OF PATHOLOGY AND GENOMIC MEDICINE Ovalocytes few [facility] DEPARTMENT OF PATHOLOGY AND GENOMIC MEDICINE Smudge cells rare [facility] DEPARTMENT OF PATHOLOGY AND GENOMIC MEDICINE Performing Organization Address City/[facility]/Zipcode Phone Number [facility] DEPARTMENT [address] [place] [address] PATHOLOGY AND GENOMIC MEDICINE * Blood culture, aerobic & anaerobic (08/28/2018 7:44 PM MR TEACHER) Only the most recent of 2 results within the time period is included. Blood culture isolate No growth after 5 days of [facility] incubation. HOSPITAL Comment: Specimen Information Specimen Source: Blood Specimen Site: RAC Specimen Blood Performing Organization Address City/State/Zipcode Phone Number [facility] DEPARTMENT OF [address] [place] [address] PATHOLOGY AND GENOMIC MEDICINE [facility] [address] [place] [address] HOSPITAL * Comprehensive metabolic panel (08/28/2018 7:44 PM MR TEACHER) Sodium 133 (L) 135 - 150 mEq/L [facility] DEPARTMENT OF PATHOLOGY AND GENOMIC MEDICINE Potassium 3.1 (L) 3.5 - 5.0 mEq/L [facility] DEPARTMENT OF PATHOLOGY AND GENOMIC MEDICINE Chloride 95 (L) 98 - 112 mEq/L [facility] DEPARTMENT OF PATHOLOGY AND GENOMIC MEDICINE CO2 25 24 - 31 mmol/L [facility] DEPARTMENT OF PATHOLOGY AND GENOMIC MEDICINE Anion gap 13@ANIO 7 - 15 mEq/L [facility] DEPARTMENT OF PATHOLOGY AND GENOMIC MEDICINE BUN 8 7 - 18 mg/dL [facility] DEPARTMENT OF PATHOLOGY AND GENOMIC MEDICINE Creatinine 1.10 (H) 0.50 - 0.90 mg/dL [facility] DEPARTMENT OF PATHOLOGY AND GENOMIC MEDICINE Glucose 131 (H) 65 - 100 mg/dL [facility] DEPARTMENT OF PATHOLOGY AND GENOMIC MEDICINE Calcium 8.4 8.3 - 10.2 mg/dL [facility] DEPARTMENT OF PATHOLOGY AND GENOMIC MEDICINE Protein 7.2 6.3 - 8.3 g/dL [facility] DEPARTMENT OF PATHOLOGY AND GENOMIC MEDICINE Albumin 3.1 (L) 3.5 - 5.0 g/dL [facility] DEPARTMENT OF PATHOLOGY AND GENOMIC MEDICINE A/G ratio 0.8 0.7 - 3.8 [facility] DEPARTMENT OF PATHOLOGY AND GENOMIC MEDICINE Alkaline phosphatase 68 0 - 104 U/L [facility] DEPARTMENT OF PATHOLOGY AND GENOMIC MEDICINE AST 18 10 - 35 U/L [facility] DEPARTMENT OF PATHOLOGY AND GENOMIC MEDICINE ALT 15 5 - 50 U/L [facility] DEPARTMENT OF PATHOLOGY AND GENOMIC MEDICINE Total bilirubin 1.1 0.2 - 1.2 mg/dL [facility] DEPARTMENT OF PATHOLOGY AND GENOMIC MEDICINE Specimen Plasma specimen Performing Organization Address City/State/Zipcode Phone Number [facility] DEPARTMENT OF [address] [place] [address] PATHOLOGY AND GENOMIC MEDICINE after 02/01/2018 Insurance Payer Benefit Subscriber ID Type Phone Address Plan / Group BCBS BCBS OUT xxxxxxxxxxxxxxx PPO OF STATE Advance Directives Patient has advance care planning documents on file. For more information, elizabeth lucas contact: Esteban Vargas [address] [place] [address]
--- NOTE | 2019-02-02 07:10 | NUR ---
SPIRITUAL CARE - Pre-Surgery Assessment: Pt in bed. Pt's mom at bedside. Pt reported supportive attention from family and friends. Intervention: I provided pastoral presence, hospitality, and sympathetic listening. I acquainted pt with availability of auto brake technician while hospitalized. Outcome: Pt expressed appreciation for visit. No need for follow up indicated at this time. ANDRADE Worthingtonlain Spiritual Care Department O: [phone] Pager: [phone] ([phone] number calling from)
[2019-02-02 09:27] VITALS: BP 112/83
--- NOTE | 2019-02-02 15:48 | Operative Report ---
DATE OF PROCEDURE: 02/02/2019 SURGEON: Jamil Clemons MD PROCEDURE: Colonoscopy with polypectomy and biopsies. INDICATIONS FOR COLONOSCOPY: Abnormal CT scan of the abdomen and pelvis, constipation, sensation of incomplete evacuation. MEDICATIONS: The patient was done under MAC, please see anesthesiologist's note. PROCEDURE IN DETAIL: With the patient in left lateral decubitus position, flexible fiberoptic Olympus colonoscope was inserted into the rectum with ease and advanced all the way to the cecum. The cecum could not be distended despite adequate air insufflation and administration of spasmolytics. It appears there is an infiltrating lesion or mass in the wall of the cecum pushing the appendiceal orifice up into the lumen to the level of the ileocecal valve. Biopsies were obtained. The ileocecal valve was intubated and biopsies were obtained from the terminal ileum. The scope was then withdrawn back into the colon. It was then withdrawn slowly and mucosa overlying the ascending, transverse and descending appeared to be within normal limits. Two minute polypoid lesions were noted in the distal sigmoid and those were hot biopsied and there was some transient bleeding post polypectomy and two hemoclips were placed to prevent any further bleeding. Two minute polyps were hot biopsied from the rectum. The scope was then retroflexed into the distal rectum and the area around the dentate line appeared to be within normal limits. The scope was then straightened out, it was subsequently withdrawn. The patient tolerated the procedure well. IMPRESSION: 1. Submucosal mass, cecum. Cecum could not be distended despite adequate air insufflation. Biopsies obtained. 2. Sigmoid colon polyps x2, minute, hot biopsied and site hemoclipped x2. 3. Rectal polyps x2 hot biopsied. PLAN: Follow up histology. The patient will need a general surgical opinion. Jamil Clemons MD [facility] /[id number] cc: Dr. Breann Coats
== END | disposition home or self-care (01) ==
LOC: ENDO 05:45
PROVIDERS: ATTEND Internal Medicine Gastroenterology
DX: K59.00 Constipation, unspecified (principal); D12.0 Benign neoplasm of cecum; K62.1 Rectal polyp; F41.9 Anxiety disorder, unspecified; Z87.891 Personal history of nicotine dependence
CPT/HCPCS: 45380; 45384; 81025; J1610; J1980; J2250; J2704; 45378

== ENCOUNTER 2019-02-18 08:41 | Inpatient (IN) | payer BC ==
[2019-02-17 16:14] LABS: BASOPHILS % 0.2 % (0.0-1.0); EOSINOPHILS # (AUTO) 0.1 (0.0-0.4); EOSINOPHILS % 0.6 % (0.0-6.0); HEMOGLOBIN 12.7 g/dL (12.0-16.0); LYMPHOCYTES # (AUTO) 2.1 (1.0-3.2); LYMPHOCYTES % 21.6 % (18.0-39.1); MEAN CORPUSCULAR HEMOGLOBIN 28.9 pg (28-32); MEAN CORPUSCULAR HGB CONC 32.6 g/dL (31-35); MEAN CORPUSCULAR VOLUME 88.6 fL (81-99); MONOCYTES # (AUTO) 0.7 (0.2-0.8); MONOCYTES % 6.6 % (4.4-11.3); NEUTROPHILS # (AUTO) 6.9 (2.1-6.9); NEUTROPHILS % 70.6 % (38.7-80.0); PLATELET COUNT 285 x10e3/uL (140-360); RED CELL DISTRIBUTION WIDTH 14.5 % (11.7-14.4)
[2019-02-17 16:34] LABS: ANION GAP 11.5 mmol/L (8-16); BLOOD UREA NITROGEN 8 mg/dL (7-26); BUN/CREATININE RATIO 10 (6-25); CARBON DIOXIDE 24 mmol/L (22-29); CHLORIDE 102 mmol/L (98-107); CREATININE, SERUM 0.79 mg/dL (0.57-1.11); EST GLOMERULAR FILTRATION RATE > 60 ML/MIN (60-); GLUCOSE 76 mg/dL (74-118); POTASSIUM 3.5 mmol/L (3.5-5.1); SODIUM 134 mmol/L (136-145)
[~2019-02-18] VITALS: Ht 160 cm; Wt 82.8 kg
[~2019-02-18 08:41] MED LIST changes: +ERYTHROMYCIN250 M1 PO; -FENTANYL CITRATE/PF 100MCG/2 ML INJ ONE; -GLUCAGON FOR INJ 1 MG VIAL ONE; -HYOSCYAMINE SULFATE 0.5 MG/ML INJ ONE; -MIDAZOLAM HCL 2 MG/2 ML VIAL ONE; +NEOMYCIN PO; -PROPOFOL IV EMULSION 10 MG/ML 50 ML VIAL ONE; +[UNRECOGNIZED DRUG - OTHER] SQ
--- OUTSIDE RECORDS SUMMARY | 2019-02-18 08:44 | XMS REPORT | Clinical Summary ---
Author Author [facility] Organization [facility] Address Unknown Phone Unavailable Care Team Providers Care Embedded Linux Developer Name Role Phone Breann Coats PA-C PCP [...] Description Date Type Specialty Regina Medrano MD 02/03/2019 Telephone UrologRegina Merchant MD Post-operative state (Primary Dx); Retained ureteral stent; Hydronephrosis with urinary obstruction due to ureteral calculus 01/28/2019 Orders Only Regina Nagel MD Retained ureteral stent (Primary Dx); Post-operative [...] Anesthesia Urology Event Regina Medrano MD 12/26/2018 [facility] General Internal Medicine - Encounter 12/27/2018 Regina Medrano MD Preop examination (Primary Dx) 12/08/2018 Pre-Admit Pre-Admission Testing Testing Appointment Rina Cintron MA Urinary tract infection without hematuria, site unspecified (Primary Dx) 11/20/2018 Orders Only General Surgery Jay Ham MD Hydronephrosis with urinary obstruction due to ureteral calculus (Primary Dx); Hydronephrosis with ureteral stricture, not elsewhere classified 11/18/2018 Office Visit Jay Sandoval MD Hydronephrosis with urinary obstruction due to [...] to ureteral calculus; Mass of cecum 08/28/2018 [facility] General Internal Medicine - Encounter 09/01/2018 Nazario Titus MD 08/28/2018 Orders Only General Internal Medicine after 02/17/2018 Immunizations Name Dates Previously Given Next Due [...] Taken Vital Sign Reading 12/27/2018 7:58 AM [facility] Blood Pressure 111/70 12/27/2018 7:58 AM [facility] Pulse 60 12/27/2018 7:58 AM [facility] Temperature 35.7 C (96.3 F) 12/27/2018 7:58 AM [facility] Respiratory Rate 20 12/27/2018 7:58 AM [facility] Oxygen Saturation 98% - Inhaled Oxygen - Concentration 12/26/2018 6:22 AM [facility] Weight 83.6 kg (184 lb 6 oz) 12/26/2018 6:22 AM [facility] Height 160 cm (5' 3") 12/26/2018 6:22 AM [facility] Body Mass Index 32.66 Plan of Treatment Care Team Description Date Type Specialty Regina Medrano MD [address] [facility] [address] [place] [address] [phone] 03/23/2019 Appointment Radiology Regina Medrano MD [address] [facility] [address] [place] [address] [phone] 03/23/2019 Appointment Radiology Regina Medrano MD [address] [facility] [address] [address] [place] [address] [phone] 03/30/2019 Office Visit Urology Health Maintenance Due Date Last Done Comments CERVICAL CANCER SCREENING 2003 INFLUENZA VACCINE 05/21/2019 08/31/2018 Implants Device Identifier Shelf Expiration Date Model / Serial / Lot Implanted Type Area Manufactur er 07/02/2021 225 [id number] / / [id number] Kit Dilat Cath Baln 18fr 5.8fr Surgical Left: Ureter, MICROVASIV 0.038in 98x71fz 1.9x6mm - Implants; [place] E [id number] Expanders; Implanted: Qty: 1 on 09/17/2018 by Extenders; Jay Ham MD Surgical Wires [id number] / / Clip Ligtng Hem-O-Kurt Endoscpc Aplr Surgical N/A: N/A COLLEEN [facility] Lg - [id number] Implants; CLOSURE Implanted: Qty: 1 on 12/26/2018 by Expanders; SYSTEMS Regina Medrano MD Extenders; Surgical Wires 12/26/2020 [id number] / / [id number] Stent Set Ureteral [employer] Surgical Left: Ureter, COOK 7fr X 28cm - [id number] Stents [place] UROLOGICAL Implanted: 08/29/2018 (Quantity not on file) 04/20/2021 [id number] / / [id number] Stent Uretl Polrs Ult 2drmtr 7fr Urological N/A: N/A BSC 26cm Hydroplus W/O Gw - [id number] Implants UROLOGY Implanted: Qty: 1 on 09/17/2018 by or Sets Jay Ham MD 10/26/2021 [id number] / / [id number] Stent Uretl Polrs Ult 2drmtr 6fr Urological N/A: N/A BSC 26cm Hydroplus W/O Gw - [id number] Implants UROLOGY Implanted: Qty: 1 on 12/26/2018 by or Sets Regina Medrano MD Procedures Comments Procedure Name Priority Date/Time Associated Diagnosis POC URINALYSIS DIPSTICK Routine 01/20/2019 Retained ureteral stent 8:47 AM CDT URINE CULTURE Routine 01/06/2019 Post-operative state 12:19 PM CDT POC UROFLOWMETRY Routine 01/06/2019 Post-operative state 12:17 PM CDT [id number] Routine 01/06/2019 Post-operative state 12:16 PM CDT FL CYSTOGRAM MINIMUM 3 VW Routine 01/05/2019 Hydronephrosis with 10:11 AM CDT urinary obstruction due to ureteral calculus Hydronephrosis with ureteral stricture, not elsewhere classified ESTIMATED GFR Routine 12/27/2018 4:56 AM [facility] BASIC METABOLIC PANEL Routine 12/27/2018 4:56 AM [facility] HC COMPLETE BLD COUNT Routine 12/27/2018 W/AUTO DIFF 4:50 AM [facility] XR ABDOMEN 1 VW PORTABLE STAT 12/26/2018 1:39 PM [facility] ESTIMATED GFR STAT 12/26/2018 11:30 AM [facility] BASIC METABOLIC PANEL STAT 12/26/2018 11:30 AM [facility] HC COMPLETE BLD COUNT STAT 12/26/2018 W/AUTO DIFF 11:30 AM [facility] PA AN ELECTIVE Routine 12/26/2018 ENDOTRACHEAL AIRWAY 7:59 AM [facility] Procedure Note - Gita Neville CRNA - 12/26/2018 7:59 AM [facility] Airway Date/Time: 12/26/2018 8:00 AM Performed by: Gita Neville CRNA Authorized by: Anni Koch MD Location: OR Urgency: Elective Anesthesio logist: Anni Kohc MD Resident/C RNA/AA: Gita Neville CRNA Preoxygena [...] 12/26/2018 Ureteral stricture, left LAPAROSCOPIC, 7:30 AM [facility] ROBOT-ASSISTED Case Notes XI Special Needs XI, POSSIBLE EXTENDED RECOVERY ESTIMATED GFR Routine 12/08/2018 9:16 AM [facility] BASIC METABOLIC PANEL Routine 12/08/2018 Preop examination 9:16 AM [facility] PARTIAL THROMBOPLASTIN Routine 12/08/2018 Preop examination TIME (PTT) 9:16 AM [facility] PROTHROMBIN TIME WITH INR Routine 12/08/2018 Preop examination 9:16 AM [facility] TYPE AND SCREEN Routine 12/08/2018 Preop examination 9:16 AM [facility] CBC HEMOGRAM Routine 12/08/2018 Preop examination 9:16 AM [facility] URINALYSIS, AUTOMATED Routine 11/25/2018 Hydronephrosis with WITH MICROSCOPY 3:38 PM [facility] urinary obstruction due to ureteral calculus URINE CULTURE Routine 11/25/2018 Hydronephrosis with 3:38 PM [facility] urinary obstruction due to ureteral calculus POC URINALYSIS DIPSTICK Routine 11/25/2018 Hydronephrosis with 1:31 PM [facility] urinary obstruction due to ureteral calculus URINE CULTURE Routine 11/20/2018 Urinary tract infection 11:41 AM [facility] without hematuria, site unspecified NM RENAL SCAN WFLOW FUNCT Routine 11/17/2018 Hydronephrosis with SGL INT W/MAG 3 10:33 AM [facility] urinary obstruction due to ureteral calculus CYSTO W/STENT REMOVAL Routine 10/16/2018 Hydronephrosis with SIMPLE 11:30 AM [facility] urinary obstruction due to ureteral calculus PA AN ELECTIVE Routine 09/17/2018 SUPRAGLOTTIC AIRWAY 3:00 PM [facility] Procedure Note - Nguyen Day CRNA - 09/17/2018 3:00 PM [facility] ANESTHESIA INTUBATION Performed by: Nguyen Day CRNA Authorized by: Nguyen Day CRNA Location: OR Urgency: Elective Anesthesio logist: Lucero Chavez MD Resident/C RNA/AA: Nguyen Day CRNA Preoxygena oniel with 100% O2: Yes C-spine Precaution s Maintained Throughout : Yes Mask Ventilatio n: Easy mask Final Airway Type: Supraglott ic airway Final LMA: Unique SURGICAL PATHOLOGY Routine 09/17/2018 REQUEST 8:55 AM [facility] ESTIMATED GFR Routine 08/31/2018 5:40 AM [facility] HC COMPLETE BLD COUNT Routine 08/31/2018 W/AUTO DIFF 5:40 AM [facility] BASIC METABOLIC PANEL Routine 08/31/2018 5:40 AM [facility] THYROID STIMULATING Routine 08/30/2018 HORMONE 4:[address] ABDOMEN PELVIS W WO Routine 08/29/2018 CONTRAST 8:03 PM [facility] FL < 1 HOUR Routine 08/29/2018 5:41 PM [facility] PA AN ELECTIVE Routine 08/29/2018 SUPRAGLOTTIC AIRWAY 5:18 PM [facility] Procedure Note - Arabella Chau CRNA - 08/29/2018 5:18 PM [facility] Airway Date/Time: 08/29/2018 5:13 PM Performed by: [...] QUALITATIVE, SERUM STAT 08/29/2018 SCREEN 5:23 AM [facility] CARCINOEMBRYONIC ANTIGEN Routine 08/29/2018 (CEA) 5:23 AM [facility] ESTIMATED GFR Timed 08/29/2018 5:23 AM [facility] BASIC METABOLIC PANEL Timed 08/29/2018 5:23 AM [facility] HC COMPLETE BLD COUNT Timed 08/29/2018 W/AUTO DIFF 5:23 AM [facility] LACTIC ACID LEVEL Timed 08/29/2018 5:23 AM [facility] LACTIC ACID LEVEL, SEPSIS Timed 08/29/2018 - NOW AND REPEAT 2X EVERY 2:30 AM [facility] 3 HOURS LACTIC ACID LEVEL, SEPSIS Timed 08/28/2018 - NOW AND REPEAT 2X EVERY 11:19 PM [facility] [address] ABDOMEN PELVIS WO STAT 08/28/2018 CONTRAST 9:53 PM [facility] URINALYSIS SCREEN AND Routine 08/28/2018 MICROSCOPY, WITH REFLEX 8:35 PM [facility] TO CULTURE GRAM STAIN Routine 08/28/2018 8:35 PM [facility] URINE CULTURE Routine 08/28/2018 8:35 PM [facility] MANUAL DIFFERENTIAL Timed 08/28/2018 7:44 PM [facility] ESTIMATED GFR Timed 08/28/2018 7:44 PM [facility] LACTIC ACID LEVEL, SEPSIS Timed 08/28/2018 - NOW AND REPEAT 2X EVERY 7:44 PM [facility] 3 HOURS COMPREHENSIVE METABOLIC Timed 08/28/2018 PANEL 7:44 PM [facility] CBC WITH PLATELET AND Timed 08/28/2018 DIFFERENTIAL 7:44 PM [facility] BLOOD CULTURE, AEROBIC & Routine 08/28/2018 ANAEROBIC 7:44 PM [facility] BLOOD CULTURE, AEROBIC & Routine 08/28/2018 ANAEROBIC 7:41 PM [facility] after 02/17/2018 Results * POC urinalysis dipstick (01/20/2019 8:47 [...] period is included. Urine culture SEE NOTE [email or web address] Comment: [facility] CULTURE, URINE, ROUTINE MICRO NUMBER:[id number] TEST STATUS: FINAL SPECIMEN SOURCE: NOT GIVEN SPECIMEN QUALITY:ADEQUATE RESULT: No Growth Specimen Urine Resulting Agency Comment Performing Organization Information: Site ID: [id number] Name: [facility] Address: [address] [place] [id number] Director: Heidi Arriola Performing Organization Address City/State/Zipcode Phone Number [facility] [address] [place] [address] * POC uroflowmetry (01/06/2019 12:17 PM CDT) [...] findings and agree with the final report. [facility]-[id number] Procedure Note Interface, Radiology Results Incoming - [...] findings and agree with the final report. [facility]-[id number] Performing Organization Address City/State/[place] [address] * Estimated GFR (12/27/2018 4:56 AM [facility]) Only the most recent of 6 results within the time period is included. Estimated GFR 84 mL/min/1.73 m2 [facility] Comment: HOSPITAL CatergoryUnitsInte rpretation G1 >=90 Normal or high G2 60-89Mildly decreased R7o15-49 Mildly to moderately decreased V7i05-70 Moderately to severely decreased G4 15-29Severely decreased G5 <15Kidney failure The eGFR was calculated using the Chronic Kidney Disease Epidemiology Collaboration (CKD-EPI) equation. Interpretation is based on recommendations of the National Kidney Foundation-Kidney Disease Outcomes Quality Initiative (NKF-KDOQI) published in 2014. Specimen Plasma specimen Performing Organization Address [facility] Phone Number [facility] [place] [address] PATHOLOGY AND GENOMIC MEDICINE [address] * Basic metabolic panel (12/27/2018 4:56 AM [facility]) Only the most recent of 5 results [...] HOSPITAL Specimen Plasma specimen Performing Organization Address City/[facility]/Zipcode Phone Number [facility] [address] PATHOLOGY AND GENOMIC MEDICINE [address] * CBC with platelet and differential (12/27/2018 4:50 AM [facility]) Only the most recent of 5 results [...] granulocytes 0.4Comment: "Immature 0.0 - 1.0 % [facility] granulocytes" (promyelocytes, HOSPITAL myelocytes, metamyelocytes) Specimen Blood Performing Organization Address City/State/Zipcode Phone Number [facility] DEPARTMENT OF [address] [place] [address] PATHOLOGY AND GENOMIC MEDICINE [address] * XR Abdomen 1 Vw Portable (12/26/2018 1:39 PM [facility]) Narrative Performed At EXAM:XR ABDOMEN 1 VW PORTABLE [facility] HISTORY:Abd painunspecified, Stent Placement COMPARISON:CT the abdomen and pelvis dated 08/29/2018 IMPRESSION: 1. Bowel gas pattern is nonobstructive. 2. The visualized osseous structures are intact. 3. A left double-J ureteral stent is in place. A drainage catheter projects over the left abdomen. [facility]-[id number] Procedure Note Interface, Radiology Results Incoming - 12/26/2018 1:51 PM [facility] EXAM: XR ABDOMEN 1 VW PORTABLE HISTORY: Abd pain unspecified, Stent Placement COMPARISON: CT the abdomen and pelvis dated 08/29/2018 IMPRESSION: 1. Bowel gas pattern is nonobstructive. 2. The visualized osseous structures are intact. 3. A left double-J ureteral stent is in place. A drainage catheter projects over the left abdomen. [facility]-[id number] Performing Organization Address [facility] Phone Number [facility] [address] [place] [address] * Partial thromboplastin time, activated (12/08/2018 9:16 AM [facility]) PTT 31.6 23.0 - 36.0 sec [facility] Comment: HOSPITAL PTT therapeutic range for unfractionated heparin is 61.0-112.0 seconds which corresponds to Anti-Xa 0.3-0.7 U/ml. Specimen Blood Performing Organization Address [facility] Phone Number [facility] DEPARTMENT OF [address] [place] [address] PATHOLOGY AND [facility] MEDICINE [address] * Prothrombin time with INR (12/08/2018 9:16 AM [facility]) Prothrombin time 12.9 11.5 - 14.5 sec [facility] INR 1.0 [facility] Comment: HOSPITAL The International Normalized Ratio (INR) is a therapeutic monitoring tool for patients who are stable on oral anticoagulant therapy. An INR of 2.0-3.0 is suggested for deep vein thrombosis/pulmonary embolism. Specimen Blood Performing Organization Address [facility] Phone Number [facility] DEPARTMENT OF [address] [place] [address] PATHOLOGY AND GENOMIC MEDICINE [address] * CBC hemogram (12/08/2018 9:16 AM [facility]) WBC 5.42 4.50 - 11.00 k/uL [facility] Specimen Blood Performing Organization Address [facility] Phone Number [facility] [address] PATHOLOGY AND GENOMIC MEDICINE [address] * Type and screen (12/08/2018 9:16 AM [facility]) ABO grouping A [facility] Rh type POS [facility] Antibody screen (gel) NEG [facility] Specimen Blood Performing Organization Address [facility] Phone Number [facility] [address] PATHOLOGY AND GENOMIC MEDICINE [address] * Urinalysis, automated with microscopy (11/25/2018 3:38 PM [facility]) Color, UA YELLOW YELLOW [facility] Appearance CLEAR CLEAR [facility] Specific gravity, urine 1.007 1.001 - 1.035 [facility] pH, urine 6.5 5.0 - 8.0 [facility] Glucose, urine NEGATIVE NEGATIVE [facility] Bilirubin, UA NEGATIVE NEGATIVE [facility] Ketones, UA NEGATIVE NEGATIVE [facility] Occult blood, urine NEGATIVE NEGATIVE [facility] Protein, UA NEGATIVE NEGATIVE [facility] Nitrite, UA NEGATIVE NEGATIVE [facility] Leukocyte esterase, UA TRACE (A) NEGATIVE [facility] WBC, UA 0-5 < OR=5 /HPF [facility] RBC, UA NONE SEEN < OR=2 /HPF [facility] Squamous epithelial NONE SEEN < OR=5 /HPF [facility] cells, [facility] Bacteria, UA NONE SEEN NONE SEEN /HPF [facility] Hyaline casts, UA NONE SEEN NONE SEEN /LPF [facility] Specimen Urine Resulting Agency Comment Performing Organization Information: Site ID: [id number] Name: [facility] Address: [address] [place] [id number] Director: Heidi Arriola Performing Organization Address City/State/Zipcode Phone Number [facility] [address] [place] [address] * NM Renal Scan Wflow Funct Sgl Int W/Mag 3 (11/17/2018 10:33 AM [facility]) Narrative Performed At [facility] Procedure:NM RENAL SCAN WFLOW FUNCT SGL INT W MAG 3 Clinical History:N13.2 Hydronephrosis with renal and ureteral calculous obstruction, left hydronephrosis Comparison:No prior nuclear renal scans. Technique: The patient was injected with 10 millicuries of [id number] intravenously, followed by dynamic imaging of the [...] right kidney with no evidence of obstruction. [facility]-[id number] Procedure Note Interface, Radiology Results Incoming - 11/17/2018 11:31 AM [facility] Procedure: NM RENAL SCAN WFLOW FUNCT SGL INT W MAG 3 Clinical History: N13.2 Hydronephrosis with renal and ureteral calculous obstruction, left hydronephrosis Comparison: No prior nuclear renal scans. Technique: The patient was injected with 10 millicuries of [id number] intravenously, followed by dynamic imaging of the [...] right kidney with no evidence of obstruction. [facility]-[id number] Performing Organization Address City/State/Zipcode Phone Number [facility] [address] [place] [address] * Cysto w/ Stent Removal/Simple (10/16/2018 11:30 AM [facility]) Narrative Performed At Jay Ham MD 10/16/2018 12:11 PM Cysto w/ Stent [...] to verify the correct patient, procedure, equipment, it support engineer and site/side marked as required. Preparation: Patient [...] * Surgical pathology request (09/17/2018 8:55 AM [facility]) [facility] DEPARTMENT OF PATHOLOGY AND GENOMIC MEDICINE Surgical pathology report See link below for PDF Lab [facility] DEPARTMENT OF Report PATHOLOGY AND GENOMIC MEDICINE Result status This is Final Report for [facility] DEPARTMENT OF [id number] PATHOLOGY AND GENOMIC MEDICINE Performing Organization Address City/[facility]/[place] [address] PATHOLOGY AND GENOMIC MEDICINE * Thyroid stimulating hormone (08/30/2018 4:25 AM [facility]) TSH 0.33 0.27 - 4.20 uIU/mL [facility] DEPARTMENT OF PATHOLOGY AND GENOMIC MEDICINE Specimen Plasma specimen Performing Organization Address City/[facility] [place] [address] PATHOLOGY AND GENOMIC MEDICINE * CT Abdomen Pelvis W Wo Contrast (08/29/2018 8:03 PM [facility]) Narrative Performed At EXAMINATION:CT ABDOMEN PELVIS W [...] left-sided hydronephrosis or masses decreased from prior [facility]-[id number] Procedure Note Hm Interface, Radiology Results Incoming - 08/29/2018 8:12 PM [facility] EXAMINATION: CT ABDOMEN PELVIS W WO CONTRAST [...] left-sided hydronephrosis or masses decreased from prior [facility]-[id number] Performing Organization Address [facility] Phone Number [facility] [address] [place] [address] * FL < 1 Hour (08/29/2018 5:41 PM [facility]) Narrative Performed At IMPRESSION:C-arm Fluoroscopy under 1 hour was provided in the OR for the [facility] referring physician.A radiologist was not present during the procedure. Refer to the Operative report issued by the performing provider for procedure details. Procedure Note [facility], Radiology Results Incoming - 08/29/2018 5:54 PM [facility] IMPRESSION: C-arm Fluoroscopy under 1 hour was provided in the OR for the referring physician. A radiologist was not present during the procedure. Refer to the Operative report issued by the performing provider for procedure details. Performing Organization Address [facility] Phone Number [facility] [address] [place] [address] * hCG qualitative, serum screen (08/29/2018 5:23 AM [facility]) hCG qualitative, serum Negative [facility] DEPARTMENT OF Comment: PATHOLOGY AND The manufacturers stated [employer] MEDICINE sensitivity of HcG test for serum is >/=10 mIU/ml and urine is >/=20mIU/ml. Specimen Blood Performing Organization Address City/[facility] Phone Number [facility] DEPARTMENT OF [address] [place] [address] PATHOLOGY AND [employer] MEDICINE * Lactic acid level (08/29/2018 5:23 AM [facility]) Lactic acid 0.9 0.5 - 2.2 mmol/L [facility] DEPARTMENT OF PATHOLOGY AND GENOMIC MEDICINE Specimen Blood Performing Organization Address City/[facility]/Zipcode Phone Number [facility] [address] [place] [address] PATHOLOGY AND GENOMIC MEDICINE * Carcinoembryonic antigen (CEA) (08/29/2018 5:23 AM [facility]) CEA <1.2 0.0 - 3.8 ng/mL [facility] DEPARTMENT OF Comment: PATHOLOGY AND Reference range for heavy [facility] MEDICINE smokers:0.0 - 5.5 ng/mL The GEMMA Cabrera 8000 CEA immunoassay was used. Results obtained with different assay methods or kits should not be used interchangeably and may be different. Specimen Serum Performing Organization Address City/[facility]/Zipcode Phone Number [facility] DEPARTMENT OF [address] [place] [address] PATHOLOGY AND GENOMIC MEDICINE * Lactic acid level, SEPSIS - Now and repeat 2x every 3 hours (08/29/2018 2:30 AM [facility]) Only the most recent of 3 results within the time period is included. Lactic acid 3.5 (HH) 0.5 - 2.2 mmol/L [facility] DEPARTMENT OF Comment: PATHOLOGY AND Results called to and read [facility] back by ROMELIA CASTLE NP, RODRIGUEZ BELTRAN RN/2E at 03:12 08/29/2018 DXP. Specimen Blood Performing Organization Address City/[facility]/Zipcode Phone Number [facility] DEPARTMENT OF [address] [place] [id number] PATHOLOGY AND GENOMIC MEDICINE * CT Abdomen Pelvis Wo Contrast (08/28/2018 9:53 PM [facility]) Narrative Performed At CT ABDOMEN PELVIS WO [...] Further evaluation is recommended with a colonoscopy. [facility]-[id number] Procedure Note Interface, Radiology Results Incoming - 08/28/2018 10:[address] ABDOMEN PELVIS WO CONTRAST CLINICAL INDICATION: [...] Further evaluation is recommended with a colonoscopy. [facility]-[id number] Performing Organization Address City/State/Zipcode Phone Number [facility] [address] [place] [address] * Urinalysis screen and microscopy, with reflex to culture (08/28/2018 8:35 PM [facility]) Specimen site Clean catch [facility] DEPARTMENT OF PATHOLOGY AND GENOMIC MEDICINE Color, UA Straw [facility] DEPARTMENT OF PATHOLOGY AND GENOMIC MEDICINE Appearance, UA Clear [facility] DEPARTMENT OF PATHOLOGY AND GENOMIC MEDICINE Specific gravity, UA 1.006 1.001 - 1.035 [facility] DEPARTMENT OF PATHOLOGY AND GENOMIC MEDICINE pH, UA 7.0 5.0 - 8.5 [facility] DEPARTMENT OF PATHOLOGY AND GENOMIC MEDICINE Protein, UA 1+ (A) Negative [facility] DEPARTMENT OF PATHOLOGY AND GENOMIC MEDICINE Glucose, UA Negative Negative [facility] DEPARTMENT OF PATHOLOGY AND GENOMIC MEDICINE Ketones, UA Trace (A) Negative [facility] DEPARTMENT OF PATHOLOGY AND GENOMIC MEDICINE Bilirubin, UA Negative Negative [facility] DEPARTMENT OF PATHOLOGY AND GENOMIC MEDICINE Blood, UA Small (A) Negative [facility] DEPARTMENT OF PATHOLOGY AND GENOMIC MEDICINE Nitrite, UA Negative Negative [facility] DEPARTMENT OF PATHOLOGY AND GENOMIC MEDICINE Urobilinogen, UA Negative <2.0 [facility] DEPARTMENT OF PATHOLOGY AND GENOMIC MEDICINE Leukocyte esterase, UA Small (A) Negative [facility] DEPARTMENT OF PATHOLOGY AND GENOMIC MEDICINE Epithelial cells, UA Few /HPF [facility] [place] [facility]OLOGY AND GENOMIC MEDICINE WBC, UA 8 (H) 0 - 5 /HPF [facility] [place] [facility] OF PATHOLOGY AND GENOMIC MEDICINE RBC, UA 2 0 - 5 /HPF [facility] [place] [facility] OF PATHOLOGY AND GENOMIC MEDICINE Bacteria, UA Trace None seen [facility] [place] [facility]MENT OF PATHOLOGY AND GENOMIC MEDICINE Yeast, UA None seen [facility] [place] [facility]MENT OF PATHOLOGY AND GENOMIC MEDICINE Yeast with pseudohyphae, None seen [facility] DE[facility]MENT OF UA PATHOLOGY AND GENOMIC MEDICINE Specimen Urine Performing Organization Address City/State/Zipcode Phone Number [facility] DEPARTMENT OF [address] [place] [address] PATHOLOGY AND GENOMIC MEDICINE * Gram stain (08/28/2018 8:35 PM [facility]) Gram stain result Rare WBC's [facility] DEPARTMENT OF No organisms seen PATHOLOGY AND Comment: GENOMIC MEDICINE Specimen Information Specimen Source: Urine Specimen Site: Clean catch Specimen Urine Performing Organization Address City/State/Zipcode Phone Number [facility] DEPARTMENT OF [address] [place] [address] PATHOLOGY AND GENOMIC MEDICINE * Manual differential (08/28/2018 7:44 PM [facility]) Manual differential PERFORMED [facility] [place] DE[facility]MENT OF PATHOLOGY AND GENOMIC MEDICINE Neutrophils 85.0 (H) 36.0 - 66.0 % [facility] [place] [facility] OF PATHOLOGY AND GENOMIC MEDICINE Lymphocytes 6.0 (L) 24.0 - 44.0 % [facility] [place] [facility]MENT OF PATHOLOGY AND GENOMIC MEDICINE Monocytes 4.0 0.0 - 6.0 % [facility] [place] [facility]MENT OF PATHOLOGY AND GENOMIC MEDICINE Eosinophils 0.0 0.0 - 6.0 % [facility] [place] [facility]MENT OF PATHOLOGY AND GENOMIC MEDICINE Basophils 0.0 0.0 - 1.2 % [facility] [place] DE[facility]MENT OF PATHOLOGY AND GENOMIC MEDICINE Metamyelocytes 1 0 - 1 % [facility] [place] DE[facility]MENT OF PATHOLOGY AND GENOMIC MEDICINE Myelocytes 2 (H) 0 - 1 % [facility] [place] [facility]MENT OF PATHOLOGY AND GENOMIC MEDICINE Promyelocytes 0 0 - 1 % [facility] [place]MENT OF PATHOLOGY AND GENOMIC MEDICINE Reactive lymphocytes 2.0 [facility] [place] [facility]MENT OF PATHOLOGY AND GENOMIC MEDICINE Platelet slide review Bandar adequate [facility] DEPARTMENT OF PATHOLOGY AND GENOMIC MEDICINE Anisocytosis few [facility] [place] [facility]PARTMENT OF PATHOLOGY AND GENOMIC MEDICINE Ovalocytes few [facility] [place] DEPARTMENT OF PATHOLOGY AND GENOMIC MEDICINE Smudge cells rare [facility] DE[facility]MENT OF PATHOLOGY AND GENOMIC MEDICINE Performing Organization Address City/[facility] Phone Number [facility] DEPARTMENT OF [address] [place] [address] PATHOLOGY AND GENOMIC MEDICINE * Blood culture, aerobic & anaerobic (08/28/2018 7:44 PM [facility]) Only the most recent of 2 results within the time period is included. Blood culture isolate No growth after 5 days of [facility] incubation. HOSPITAL Comment: Specimen Information Specimen Source: Blood Specimen Site: RAC Specimen Blood Performing Organization Address City/State/[facility] Phone Number [facility] DEPARTMENT OF [address] [place] [address] PATHOLOGY AND GENOMIC MEDICINE [facility] [address] [place] [address] HOSPITAL * Comprehensive metabolic panel (08/28/2018 7:44 PM [facility]) Sodium 133 (L) 135 - 150 mEq/L [facility] DEPARTMENT OF PATHOLOGY AND GENOMIC MEDICINE Potassium 3.1 (L) 3.5 - 5.0 mEq/L [facility]MENT OF PATHOLOGY AND GENOMIC MEDICINE Chloride 95 (L) 98 - 112 mEq/L [facility]MENT OF PATHOLOGY AND GENOMIC MEDICINE CO2 25 24 - 31 mmol/L [facility] DE[facility]MENT OF PATHOLOGY AND GENOMIC MEDICINE Anion gap 13@ANIO 7 - 15 mEq/L [facility] DE[facility]MENT OF PATHOLOGY AND GENOMIC MEDICINE BUN 8 7 - 18 mg/dL [facility] DE[facility]MENT OF PATHOLOGY AND GENOMIC MEDICINE Creatinine 1.10 (H) 0.50 - 0.90 mg/dL [facility] [facility]MENT OF PATHOLOGY AND GENOMIC MEDICINE Glucose 131 (H) 65 - 100 mg/dL [facility] DE[facility]MENT OF PATHOLOGY AND GENOMIC MEDICINE Calcium 8.4 8.3 - 10.2 mg/dL [facility] DE[facility]MENT OF PATHOLOGY AND GENOMIC MEDICINE Protein 7.2 6.3 - 8.3 g/dL [facility]MENT OF PATHOLOGY AND GENOMIC MEDICINE Albumin 3.1 (L) 3.5 - 5.0 g/dL [facility]MENT OF PATHOLOGY AND GENOMIC MEDICINE A/G ratio 0.8 0.7 - 3.8 [facility] DE[facility]MENT OF PATHOLOGY AND GENOMIC MEDICINE Alkaline phosphatase 68 0 - 104 U/L [facility] DE[facility]MENT OF PATHOLOGY AND GENOMIC MEDICINE AST 18 10 - 35 U/L [facility] DE[facility]MENT OF PATHOLOGY AND GENOMIC MEDICINE ALT 15 5 - 50 U/L [facility] DE[facility]MENT OF PATHOLOGY AND GENOMIC MEDICINE Total bilirubin 1.1 0.2 - 1.2 mg/dL [facility] DE[facility]MENT OF PATHOLOGY AND GENOMIC MEDICINE Specimen Plasma specimen Performing Organization Address City/State/Zipcode Phone Number [facility] DEPARTMENT [address] [place] [address] PATHOLOGY AND GENOMIC MEDICINE after 02/17/2018 Insurance Payer Benefit Subscriber ID Type Phone Address Plan / Group BCBS BCBS OUT xxxxxxxxxxxxxxx PPO OF STATE Advance Directives Patient has advance care planning documents on file. For more information, elizabeth lucas contact: Esteban Vargas [address] [place] [address]
[2019-02-18] MEDS ORDERED: FENTANYL CITRATE/PF 100MCG/2 ML INJ ONE ×2 (14:26→17:59)
[2019-02-18] MEDS ORDERED: ACETAMINOPHEN 1000 MG/100 ML IV PRN (14:30)
[2019-02-18] MEDS ORDERED: NALOXONE HCL INJ 0.4 MG/ML AMP IV PRN (14:30)
[2019-02-18] MEDS ORDERED: PROMETHAZINE HCL (IM) 25 MG/ML VIAL IV PRN (14:30)
[2019-02-18] MEDS: DEXTROSE 5%/LACTATED RINGERS 1,000 ML IV SCH (14:30)
[2019-02-18] MEDS: PANTOPRAZOLE 40 MG 10ML VIAL IV SCH (14:30)
[2019-02-18] MEDS ORDERED: HYDROMORPHONE 0.2MG/ML-SOD CHL 30ML PCA SYRINGE IV PRN (14:30)
[2019-02-18] MEDS ORDERED: ONDANSETRON HCL INJ 2MG/ML 2ML 2 MG/ML VIAL ONE (14:31)
[2019-02-18] MEDS ORDERED: METOCLOPRAMIDE HCL 10 MG/2ML VIAL ONE (14:31)
[2019-02-18] MEDS ORDERED: PROMETHAZINE 12.5MG/ NACL 0.9% 50 ML IV PRN (14:45)
[2019-02-18] MEDS ORDERED: HYDROMORPHONE 0.2MG/ML-SOD CHL 30ML PCA SYRINGE IV ONE (14:45)
--- OUTSIDE RECORDS SUMMARY | 2019-02-18 15:12 | XMS REPORT | Clinical Summary ---
Author Author Orellana Holiness Organization [facility] Address Unknown Phone Unavailable Care Team Providers Care Childcare Attendant Name Role Phone Breann Coats PA-C PCP [...] Anesthesia Urology Event Regina Medrano MD 12/26/2018 [facility] General Internal Medicine - Encounter 12/27/2018 Regina [...] to ureteral calculus; Mass of cecum 08/28/2018 [facility] General Internal Medicine - Encounter 09/01/2018 Nazario [...] Taken Vital Sign Reading 12/27/2018 7:58 AM [facility] Blood Pressure 111/70 12/27/2018 7:58 AM [facility] Pulse 60 12/27/2018 7:58 AM [facility] Temperature 35.7 C (96.3 F) 12/27/2018 7:58 AM [facility] Respiratory Rate 20 12/27/2018 7:58 AM [facility] Oxygen Saturation 98% - Inhaled Oxygen - Concentration 12/26/2018 6:22 AM [facility] Weight 83.6 kg (184 lb 6 oz) 12/26/2018 6:22 AM [facility] Height 160 cm (5' 3") 12/26/2018 6:22 AM [facility] Body Mass Index 32.66 Plan of Treatment Care Team Description Date Type Specialty Regina Medrano MD [address] [facility] [address] [place] [address] [phone] 03/23/2019 Appointment Radiology Regina Medrano MD [address] [facility] [address] [place] [address] [phone] 03/23/2019 Appointment Radiology Regina Medrano MD [address] [facility] [address] [place] [address] [phone] 03/30/2019 Office Visit Urology Health Maintenance Due Date Last Done Comments CERVICAL CANCER SCREENING 2003 INFLUENZA VACCINE 05/21/2019 08/31/2018 Implants Device Identifier Shelf Expiration Date Model / Serial / Lot Implanted Type Area Manufactur er 07/02/2021 225 [id number] / / [id number] Kit Dilat Cath Baln 18fr 5.8fr Surgical Left: Ureter, MICROVASIV 0.038in [id number] 1.9x6mm - Implants; [place] E [id number] Expanders; Implanted: Qty: 1 on 09/17/2018 by Extenders; Jay Ham MD Surgical Wires [id number] / / Clip Ligtng Hem-O-Kurt Endoscpc Aplr Surgical N/A: N/A COLLEEN [facility] - [id number] Implants; CLOSURE Implanted: Qty: 1 on 12/26/2018 by Expanders; SYSTEMS Regina Medrano MD Extenders; Surgical Wires 12/26/2020 [id number] / / [id number] Stent Set Ureteral [employer] Surgical Left: Ureter, COOK 7fr X 28cm - [id number] Stents [place] UROLOGICAL Implanted: 08/29/2018 (Quantity not on file) 04/20/2021 [id number] / / [id number] Stent Uretl Polrs Ult 2drmtr 7fr Urological N/A: N/A BSC 26cm Hydroplus W/O Gw - [id number] Implants UROLOGY Implanted: Qty: 1 on 09/17/2018 by or Sets Jay Ham MD 10/26/2021 [id number] / / [id number] Stent Uretl Polrs Ult [id number] 6fr Urological N/A: N/A BSC 26cm Hydroplus W/O Gw - [id number] Implants UROLOGY Implanted: Qty: 1 on 12/26/2018 by or Sets Regina Medrano MD Procedures Comments Procedure Name Priority Date/Time Associated Diagnosis POC URINALYSIS DIPSTICK Routine 01/20/2019 Retained ureteral stent 8:47 AM CDT URINE CULTURE Routine 01/06/2019 Post-operative state 12:19 PM CDT POC UROFLOWMETRY Routine 01/06/2019 Post-operative state 12:17 PM CDT [id number] Routine 01/06/2019 Post-operative state 12:16 PM CDT FL CYSTOGRAM MINIMUM 3 VW Routine 01/05/2019 Hydronephrosis with 10:11 AM CDT urinary obstruction due to ureteral calculus Hydronephrosis with ureteral stricture, not elsewhere classified ESTIMATED GFR Routine 12/27/2018 4:56 AM [facility] BASIC METABOLIC PANEL Routine 12/27/2018 4:56 AM [facility] HC COMPLETE BLD COUNT Routine 12/27/2018 W/AUTO DIFF 4:50 AM [facility] XR ABDOMEN 1 VW PORTABLE STAT 12/26/2018 1:39 PM [facility] ESTIMATED GFR STAT 12/26/2018 11:30 AM [facility] BASIC METABOLIC PANEL STAT 12/26/2018 11:30 AM [facility] HC COMPLETE BLD COUNT STAT 12/26/2018 W/AUTO DIFF 11:30 AM [facility] NC AN ELECTIVE Routine 12/26/2018 ENDOTRACHEAL AIRWAY 7:59 AM [facility] Procedure Note - Gita Neville CRNA - 12/26/2018 7:59 AM [facility] Airway Date/Time: 12/26/2018 8:00 AM Performed by: [...] 12/26/2018 Ureteral stricture, left LAPAROSCOPIC, 7:30 AM [facility] ROBOT-ASSISTED Case Notes XI Special Needs XI, POSSIBLE EXTENDED RECOVERY ESTIMATED GFR Routine 12/08/2018 9:16 AM [facility] BASIC METABOLIC PANEL Routine 12/08/2018 Preop examination 9:16 AM [facility] PARTIAL THROMBOPLASTIN Routine 12/08/2018 Preop examination TIME (PTT) 9:16 AM [facility] PROTHROMBIN TIME WITH INR Routine 12/08/2018 Preop examination 9:16 AM [facility] TYPE AND SCREEN Routine 12/08/2018 Preop examination 9:16 AM [facility] CBC HEMOGRAM Routine 12/08/2018 Preop examination 9:16 AM [facility] URINALYSIS, AUTOMATED Routine 11/25/2018 Hydronephrosis with WITH MICROSCOPY 3:38 PM [facility] urinary obstruction due to ureteral calculus URINE CULTURE Routine 11/25/2018 Hydronephrosis with 3:38 PM [facility] urinary obstruction due to ureteral calculus POC URINALYSIS DIPSTICK Routine 11/25/2018 Hydronephrosis with 1:31 PM [facility] urinary obstruction due to ureteral calculus URINE CULTURE Routine 11/20/2018 Urinary tract infection 11:41 AM [facility] without hematuria, site unspecified NM RENAL SCAN WFLOW FUNCT Routine 11/17/2018 Hydronephrosis with SGL INT W/MAG 3 10:33 AM [facility] urinary obstruction due to ureteral calculus CYSTO W/STENT REMOVAL Routine 10/16/2018 Hydronephrosis with SIMPLE 11:30 AM [facility] urinary obstruction due to ureteral calculus NC AN ELECTIVE Routine 09/17/2018 SUPRAGLOTTIC AIRWAY 3:00 PM [facility] Procedure Note - Nguyen Day CRNA - 09/17/2018 3:00 PM [facility] ANESTHESIA INTUBATION Performed by: Nguyen Day CRNA Authorized by: Nguyen Day CRNA Location: OR Urgency: Elective Anesthesio logist: Lucero Chavez MD Resident/C RNA/AA: Nguyen Day CRNA Preoxygena oniel with 100% O2: Yes C-spine Precaution s Maintained Throughout : Yes Mask Ventilatio n: Easy mask Final Airway Type: Supraglott ic airway Final LMA: Unique SURGICAL PATHOLOGY Routine 09/17/2018 REQUEST 8:55 AM [facility] ESTIMATED GFR Routine 08/31/2018 5:40 AM [facility] HC COMPLETE BLD COUNT Routine 08/31/2018 W/AUTO DIFF 5:40 AM [facility] BASIC METABOLIC PANEL Routine 08/31/2018 5:40 AM [facility] THYROID STIMULATING Routine 08/30/2018 HORMONE 4:[address] ABDOMEN PELVIS W WO Routine 08/29/2018 CONTRAST 8:03 PM [facility] FL < 1 HOUR Routine 08/29/2018 5:41 PM [facility] NC AN ELECTIVE Routine 08/29/2018 SUPRAGLOTTIC AIRWAY 5:18 PM [facility] Procedure Note - Arabella Chau CRNA - 08/29/2018 5:18 PM [facility] Airway Date/Time: 08/29/2018 5:13 PM Performed by: [...] QUALITATIVE, SERUM STAT 08/29/2018 SCREEN 5:23 AM [facility] CARCINOEMBRYONIC ANTIGEN Routine 08/29/2018 (CEA) 5:23 AM [facility] ESTIMATED GFR Timed 08/29/2018 5:23 AM [facility] BASIC METABOLIC PANEL Timed 08/29/2018 5:23 AM [facility] HC COMPLETE BLD COUNT Timed 08/29/2018 W/AUTO DIFF 5:23 AM [facility] LACTIC ACID LEVEL Timed 08/29/2018 5:23 AM [facility] LACTIC ACID LEVEL, SEPSIS Timed 08/29/2018 - NOW AND REPEAT 2X EVERY 2:30 AM [facility] 3 HOURS LACTIC ACID LEVEL, SEPSIS Timed 08/28/2018 - NOW AND REPEAT 2X EVERY 11:19 PM [facility] [address] ABDOMEN PELVIS WO STAT 08/28/2018 CONTRAST 9:53 PM [facility] URINALYSIS SCREEN AND Routine 08/28/2018 MICROSCOPY, WITH REFLEX 8:35 PM [facility] TO CULTURE GRAM STAIN Routine 08/28/2018 8:35 PM [facility] URINE CULTURE Routine 08/28/2018 8:35 PM [facility] MANUAL DIFFERENTIAL Timed 08/28/2018 7:44 PM [facility] ESTIMATED GFR Timed 08/28/2018 7:44 PM [facility] LACTIC ACID LEVEL, SEPSIS Timed 08/28/2018 - NOW AND REPEAT 2X EVERY 7:44 PM [facility] 3 HOURS COMPREHENSIVE METABOLIC Timed 08/28/2018 PANEL 7:44 PM [facility] CBC WITH PLATELET AND Timed 08/28/2018 DIFFERENTIAL 7:44 PM [facility] BLOOD CULTURE, AEROBIC & Routine 08/28/2018 ANAEROBIC 7:44 PM [facility] BLOOD CULTURE, AEROBIC & Routine 08/28/2018 ANAEROBIC 7:41 PM [facility] after 02/17/2018 Results * POC urinalysis dipstick [...] period is included. Urine culture SEE NOTE [employer] Comment: [place] CULTURE, URINE, ROUTINE MICRO NUMBER:[id number] TEST STATUS: FINAL SPECIMEN SOURCE: NOT GIVEN SPECIMEN QUALITY:ADEQUATE RESULT: No Growth Specimen Urine Resulting Agency Comment Performing Organization Information: Site ID: [id number] Name: [facility] Address: [address] [place] [id number] Director: Heidi Arriola Performing Organization Address City/State/Zipcode Phone Number [employer] [place] [address] [place] [phone] * POC uroflowmetry (01/06/2019 12:17 PM [...] findings and agree with the final report. [facility]-[id number] Procedure Note Interface, Radiology Results Incoming - [...] findings and agree with the final report. [facility]-[id number] Performing Organization Address City/State/[place] [address] * Estimated GFR (12/27/2018 4:56 AM [facility]) Only the most recent of 6 results within the time period is included. Estimated GFR 84 mL/min/1.73 m2 [facility] Comment: HOSPITAL CatergoryUnitsInte rpretation G1 >=90 Normal or high G2 60-89Mildly decreased N5e73-78 Mildly to moderately decreased M4x65-59 Moderately to severely decreased G4 15-29Severely decreased G5 <15Kidney failure The eGFR was calculated using the Chronic Kidney Disease Epidemiology Collaboration (CKD-EPI) equation. Interpretation is based on recommendations of the National Kidney Foundation-Kidney Disease Outcomes Quality Initiative (NKF-KDOQI) published in 2014. Specimen Plasma specimen Performing Organization Address [facility] Phone Number [facility] [place] [address] PATHOLOGY AND GENOMIC MEDICINE [address] * Basic metabolic panel (12/27/2018 4:56 AM [facility]) Only the most recent of 5 results within the time period is included. Sodium 139 135 - 148 mEq/L [facility] Potassium 4.1 3.5 - 5.0 mEq/L [facility] Chloride 105 98 - 112 mEq/L [facility] CO2 23 (L) 24 - 31 mEq/L [facility] Anion gap 11@ANIO 7 - 15 mEq/L [facility] BUN 13 6 - 20 mg/dL [facility] Creatinine 0.88 0.50 - 0.90 mg/dL [facility] Glucose 113 (H) 65 - 99 mg/dL [facility] Calcium 9.0 8.3 - 10.2 mg/dL [facility] Specimen Plasma specimen Performing Organization Address City/[facility]/Zipcode Phone Number [facility] [place] [address] PATHOLOGY AND GENOMIC MEDICINE [address] * CBC with platelet and differential (12/27/2018 4:50 AM [facility]) Only the most recent of 5 results within the time period is included. WBC 13.65 (H) 4.50 - 11.00 k/uL [facility] RBC 3.79 (L) 4.20 - 5.50 m/uL [facility] HGB 11.2 (L) 12.0 - 16.0 g/dL [facility] HCT 35.1 (L) 37.0 - 47.0 % [facility] MCV 92.6 82.0 - 100.0 fL [facility] MCH 29.6 27.0 - 34.0 pg [facility] MCHC 31.9 31.0 - 37.0 g/dL [facility] RDW - SD 43.7 37.0 - 55.0 fL [facility] MPV 9.7 8.8 - 13.2 fL [facility] Platelet count 236 150 - 400 k/uL [facility] Nucleated RBC 0.00 /100 WBC [facility] Neutrophils 79.5 (H) 39.0 - 69.0 % [facility] Lymphocytes 11.4 (L) 25.0 - 45.0 % [facility] Monocytes 8.5 0.0 - 10.0 % [facility] Eosinophils 0.1 0.0 - 5.0 % [facility] Basophils 0.1 0.0 - 1.0 % [facility] Immature granulocytes 0.4Comment: "Immature 0.0 - 1.0 % [facility] granulocytes" (promyelocytes, HOSPITAL myelocytes, metamyelocytes) Specimen Blood Performing Organization Address City/State/Zipcode Phone Number [facility] DEPARTMENT OF [address] [place] [address] PATHOLOGY AND GENOMIC MEDICINE [address] * XR Abdomen 1 Vw Portable (12/26/2018 1:39 PM [facility]) Narrative Performed At EXAM:XR ABDOMEN 1 VW PORTABLE [facility] HISTORY:Abd painunspecified, Stent Placement COMPARISON:CT the abdomen and pelvis dated 08/29/2018 IMPRESSION: 1. Bowel gas pattern is nonobstructive. 2. The visualized osseous structures are intact. 3. A left double-J ureteral stent is in place. A drainage catheter projects over the left abdomen. [facility]-[id number] Procedure Note Interface, Radiology Results Incoming - 12/26/2018 1:51 PM [facility] EXAM: XR ABDOMEN 1 VW PORTABLE HISTORY: Abd pain unspecified, Stent Placement COMPARISON: CT the abdomen and pelvis dated 08/29/2018 IMPRESSION: 1. Bowel gas pattern is nonobstructive. 2. The visualized osseous structures are intact. 3. A left double-J ureteral stent is in place. A drainage catheter projects over the left abdomen. [facility]-[id number] Performing Organization Address [facility] Phone Number [facility] [address] [place] [address] * Partial thromboplastin time, activated (12/08/2018 9:16 AM [facility]) PTT 31.6 23.0 - 36.0 sec [facility] Comment: HOSPITAL PTT therapeutic range for unfractionated heparin is 61.0-112.0 seconds which corresponds to Anti-Xa 0.3-0.7 U/ml. Specimen Blood Performing Organization Address [facility] Phone Number [facility] DEPARTMENT OF [address] [place] [address] PATHOLOGY AND [facility] MEDICINE [address] * Prothrombin time with INR (12/08/2018 9:16 AM [facility]) Prothrombin time 12.9 11.5 - 14.5 sec [facility] INR 1.0 [facility] Comment: HOSPITAL The International Normalized Ratio (INR) is a therapeutic monitoring tool for patients who are stable on oral anticoagulant therapy. An INR of 2.0-3.0 is suggested for deep vein thrombosis/pulmonary embolism. Specimen Blood Performing Organization Address [facility] Phone Number [facility] DEPARTMENT OF [address] [place] [address] PATHOLOGY AND GENOMIC MEDICINE [address] * CBC hemogram (12/08/2018 9:16 AM [facility]) WBC 5.42 4.50 - 11.00 k/uL [facility] RBC 4.14 (L) 4.20 - 5.50 m/uL [facility] HGB 12.2 12.0 - 16.0 g/dL [facility] HCT 37.3 37.0 - 47.0 % [facility] MCV 90.1 82.0 - 100.0 fL [facility] MCH 29.5 27.0 - 34.0 pg [facility] MCHC 32.7 31.0 - 37.0 g/dL [facility] RDW - SD 42.1 37.0 - 55.0 fL [facility] MPV 9.7 8.8 - 13.2 fL [facility] Platelet count 279 150 - 400 k/uL [facility] Nucleated RBC 0.00 /100 WBC [facility] Specimen Blood Performing Organization Address [facility] Phone Number [facility] [place] [address] PATHOLOGY AND GENOMIC MEDICINE [address] * Type and screen (12/08/2018 9:16 AM [facility]) ABO grouping A [facility] Rh type POS [facility] Antibody screen (gel) NEG [facility] Specimen Blood Performing Organization Address [facility] Phone Number [facility] [place] [address] PATHOLOGY AND GENOMIC MEDICINE [address] * Urinalysis, automated with microscopy (11/25/2018 3:38 PM [facility]) Color, UA YELLOW YELLOW [facility] [place] Appearance CLEAR CLEAR [facility] [place] Specific gravity, urine 1.007 1.001 - 1.035 [facility] [place] pH, urine 6.5 5.0 - 8.0 [facility] [place] Glucose, urine NEGATIVE NEGATIVE [facility] [place] Bilirubin, UA NEGATIVE NEGATIVE [facility] [place] Ketones, UA NEGATIVE NEGATIVE [facility] [place] Occult blood, urine NEGATIVE NEGATIVE [facility] [place] Protein, UA NEGATIVE NEGATIVE [facility] [place] Nitrite, UA NEGATIVE NEGATIVE [facility] [place] Leukocyte esterase, UA TRACE (A) NEGATIVE [facility] [place] WBC, UA 0-5 < OR=5 /HPF [facility] [place] RBC, UA NONE SEEN < OR=2 /HPF [facility] [place] Squamous epithelial NONE SEEN < OR=5 /HPF [facility] cells, [facility] [place] Bacteria, UA NONE SEEN NONE SEEN /HPF [facility] [place] Hyaline casts, UA NONE SEEN NONE SEEN /LPF [facility] [place] Specimen Urine Resulting Agency Comment Performing Organization Information: Site ID: [id number] Name: [facility] Address: [address] [place] [id number] Director: Heidi Arriola Performing Organization Address City/State/Zipcode Phone Number [facility] [place] [address] [place] [address] * NM Renal Scan Wflow Funct Sgl Int W/Mag 3 (11/17/2018 10:33 AM [facility]) Narrative Performed At [facility] Procedure:NM RENAL SCAN WFLOW FUNCT SGL INT W MAG 3 Clinical History:N13.2 Hydronephrosis with renal and ureteral calculous obstruction, left hydronephrosis Comparison:No prior nuclear renal scans. Technique: The patient was injected with 10 millicuries of [id number] intravenously, followed by dynamic imaging of the [...] right kidney with no evidence of obstruction. [facility]-[id number] Procedure Note Interface, Radiology Results Incoming - 11/17/2018 11:31 AM [facility] Procedure: NM RENAL SCAN WFLOW FUNCT SGL INT W MAG 3 Clinical History: N13.2 Hydronephrosis with renal and ureteral calculous obstruction, left hydronephrosis Comparison: No prior nuclear renal scans. Technique: The patient was injected with 10 millicuries of [id number] intravenously, followed by dynamic imaging of the [...] right kidney with no evidence of obstruction. [id number] Performing Organization Address City/State/Zipcode Phone Number [facility] [address] [place] [address] * Cysto w/ Stent Removal/Simple (10/16/2018 11:30 AM [facility]) Narrative Performed At Jay Ham MD 10/16/2018 [...] to verify the correct patient, procedure, equipment, gwot ia/ilo intelligence support and site/side marked as required. Preparation: Patient [...] * Surgical pathology request (09/17/2018 8:55 AM [facility]) [facility] DEPARTMENT OF PATHOLOGY AND GENOMIC MEDICINE Surgical pathology report See link below for PDF Lab [facility] DEPARTMENT OF Report PATHOLOGY AND GENOMIC MEDICINE Result status This is Final Report for [facility] DEPARTMENT OF [id number] PATHOLOGY AND GENOMIC MEDICINE Performing Organization Address City/[facility]/[place] [address] PATHOLOGY AND GENOMIC MEDICINE * Thyroid stimulating hormone (08/30/2018 4:25 AM [facility]) TSH 0.33 0.27 - 4.20 uIU/mL [facility] DEPARTMENT OF PATHOLOGY AND GENOMIC MEDICINE Specimen Plasma specimen Performing Organization Address City/[facility] [place] [address] PATHOLOGY AND GENOMIC MEDICINE * CT Abdomen Pelvis W Wo Contrast (08/29/2018 8:03 PM [facility]) Narrative Performed At EXAMINATION:CT ABDOMEN PELVIS W [...] left-sided hydronephrosis or masses decreased from prior [id number] Procedure Note Hm Interface, Radiology Results Incoming - 08/29/2018 8:12 PM [facility] EXAMINATION: CT ABDOMEN PELVIS W WO CONTRAST [...] left-sided hydronephrosis or masses decreased from prior [facility]-[id number] Performing Organization Address [facility] Phone Number [facility] [address] [place] [address] * FL < 1 Hour (08/29/2018 5:41 PM [facility]) Narrative Performed At IMPRESSION:C-arm Fluoroscopy under 1 hour was provided in the OR for the [facility] referring physician.A radiologist was not present during the procedure. Refer to the Operative report issued by the performing provider for procedure details. Procedure Note [facility], Radiology Results Incoming - 08/29/2018 5:54 PM [facility] IMPRESSION: C-arm Fluoroscopy under 1 hour was provided in the OR for the referring physician. A radiologist was not present during the procedure. Refer to the Operative report issued by the performing provider for procedure details. Performing Organization Address [facility] Phone Number [facility] [address] [place] [address] * hCG qualitative, serum screen (08/29/2018 5:23 AM [facility]) hCG qualitative, serum Negative [facility] DEPARTMENT OF Comment: PATHOLOGY AND The manufacturers stated [employer] sensitivity of HcG test for serum is >/=10 mIU/ml and urine is >/=20mIU/ml. Specimen Blood Performing Organization Address City/[facility] Phone Number [facility] DEPARTMENT OF [address] [place] [address] PATHOLOGY AND [employer] MEDICINE * Lactic acid level (08/29/2018 5:23 AM [facility]) Lactic acid 0.9 0.5 - 2.2 mmol/L [facility] DEPARTMENT OF PATHOLOGY AND GENOMIC MEDICINE Specimen Blood Performing Organization Address City/[facility]/Zipcode Phone Number [facility] [address] [place] [address] PATHOLOGY AND GENOMIC MEDICINE * Carcinoembryonic antigen (CEA) (08/29/2018 5:23 AM [facility]) CEA <1.2 0.0 - 3.8 ng/mL [facility] DEPARTMENT OF Comment: PATHOLOGY AND Reference range for heavy [facility] MEDICINE smokers:0.0 - 5.5 ng/mL The GEMMA Cabrera 8000 CEA immunoassay was used. Results obtained with different assay methods or kits should not be used interchangeably and may be different. Specimen Serum Performing Organization Address City/[facility]/Zipcode Phone Number [facility] DEPARTMENT OF [address] [place] [address] PATHOLOGY AND GENOMIC MEDICINE * Lactic acid level, SEPSIS - Now and repeat 2x every 3 hours (08/29/2018 2:30 AM [facility]) Only the most recent of 3 results within the time period is included. Lactic acid 3.5 (HH) 0.5 - 2.2 mmol/L [facility] DEPARTMENT OF Comment: PATHOLOGY AND Results called to and read [facility] back by ROMELIA CASTLE NP, RODRIGUEZ BELTRAN RN/2E at 03:12 08/29/2018 DXP. Specimen Blood Performing Organization Address City/[facility]/Zipcode Phone Number [facility] DEPARTMENT OF [address] [place] [id number] PATHOLOGY AND GENOMIC MEDICINE * CT Abdomen Pelvis Wo Contrast (08/28/2018 9:53 PM [facility]) Narrative Performed At CT ABDOMEN PELVIS WO [...] Further evaluation is recommended with a colonoscopy. [facility]-[id number] Procedure Note Interface, Radiology Results Incoming - 08/28/2018 10:[address] ABDOMEN PELVIS WO CONTRAST CLINICAL INDICATION: [...] Further evaluation is recommended with a colonoscopy. [facility]-[id number] Performing Organization Address City/State/Zipcode Phone Number [facility] [address] [place] [address] * Urinalysis screen and microscopy, with reflex to culture (08/28/2018 8:35 PM [facility]) Specimen site Clean catch [facility] DEPARTMENT OF PATHOLOGY AND GENOMIC MEDICINE Color, UA Straw [facility] DEPARTMENT OF PATHOLOGY AND GENOMIC MEDICINE Appearance, UA Clear [facility] DEPARTMENT OF PATHOLOGY AND GENOMIC MEDICINE Specific gravity, UA 1.006 1.001 - 1.035 [facility] DEPARTMENT OF PATHOLOGY AND GENOMIC MEDICINE pH, UA 7.0 5.0 - 8.5 [facility] DEPARTMENT OF PATHOLOGY AND GENOMIC MEDICINE Protein, UA 1+ (A) Negative [facility] DEPARTMENT OF PATHOLOGY AND GENOMIC MEDICINE Glucose, UA Negative Negative [facility] DEPARTMENT OF PATHOLOGY AND GENOMIC MEDICINE Ketones, UA Trace (A) Negative [facility] DEPARTMENT OF PATHOLOGY AND GENOMIC MEDICINE Bilirubin, UA Negative Negative [facility] DEPARTMENT OF PATHOLOGY AND GENOMIC MEDICINE Blood, UA Small (A) Negative [facility] DEPARTMENT OF PATHOLOGY AND GENOMIC MEDICINE Nitrite, UA Negative Negative [facility] DEPARTMENT OF PATHOLOGY AND GENOMIC MEDICINE Urobilinogen, UA Negative <2.0 [facility] DEPARTMENT OF PATHOLOGY AND GENOMIC MEDICINE Leukocyte esterase, UA Small (A) Negative [facility] DEPARTMENT OF PATHOLOGY AND GENOMIC MEDICINE Epithelial cells, UA Few /HPF [facility] DEPARTMENT OF PATHOLOGY AND GENOMIC MEDICINE WBC, UA 8 (H) 0 - 5 /HPF [facility] DEPARTMENT OF PATHOLOGY AND GENOMIC MEDICINE RBC, UA 2 0 - 5 /HPF [facility] DEPARTMENT OF PATHOLOGY AND GENOMIC MEDICINE Bacteria, UA Trace None seen [facility] DEPARTMENT OF PATHOLOGY AND GENOMIC MEDICINE Yeast, UA None seen [facility] DEPARTMENT OF PATHOLOGY AND GENOMIC MEDICINE Yeast with pseudohyphae, None seen [facility] DEPARTMENT OF UA PATHOLOGY AND GENOMIC MEDICINE Specimen Urine Performing Organization Address City/State/Zipcode Phone Number [facility] DEPARTMENT OF [address] [place] [address] PATHOLOGY AND GENOMIC MEDICINE * Gram stain (08/28/2018 8:35 PM BILINGUAL NANNY) Gram stain result Rare WBC's [facility] DEPARTMENT OF No organisms seen PATHOLOGY AND Comment: GENOMIC MEDICINE Specimen Information Specimen Source: Urine Specimen Site: Clean catch Specimen Urine Performing Organization Address City/State/Zipcode Phone Number [facility] DEPARTMENT OF [address] [place] [address] PATHOLOGY AND GENOMIC MEDICINE * Manual differential (08/28/2018 7:44 PM BILINGUAL NANNY) Manual differential PERFORMED [facility] DEPARTMENT OF PATHOLOGY AND GENOMIC MEDICINE Neutrophils 85.0 (H) 36.0 - 66.0 % [facility] DEPARTMENT OF PATHOLOGY AND GENOMIC MEDICINE Lymphocytes 6.0 (L) 24.0 - 44.0 % [facility] DEPARTMENT OF PATHOLOGY AND GENOMIC MEDICINE Monocytes 4.0 0.0 - 6.0 % [facility] DEPARTMENT OF PATHOLOGY AND GENOMIC MEDICINE Eosinophils 0.0 0.0 - 6.0 % [facility] DEPARTMENT OF PATHOLOGY AND GENOMIC MEDICINE Basophils 0.0 0.0 - 1.2 % [facility] DEPARTMENT OF PATHOLOGY AND GENOMIC MEDICINE Metamyelocytes 1 0 - 1 % [facility] DEPARTMENT OF PATHOLOGY AND GENOMIC MEDICINE Myelocytes 2 (H) 0 - 1 % [facility] DEPARTMENT OF PATHOLOGY AND GENOMIC MEDICINE Promyelocytes 0 0 - 1 % [facility] DEPARTMENT OF PATHOLOGY AND GENOMIC MEDICINE Reactive lymphocytes 2.0 [facility] DEPARTMENT OF PATHOLOGY AND GENOMIC MEDICINE Platelet slide review Bandar adequate [facility] DEPARTMENT OF PATHOLOGY AND GENOMIC MEDICINE Anisocytosis few [facility] DEPARTMENT OF PATHOLOGY AND GENOMIC MEDICINE Ovalocytes few [facility] DEPARTMENT OF PATHOLOGY AND GENOMIC MEDICINE Smudge cells rare [facility] DEPARTMENT OF PATHOLOGY AND GENOMIC MEDICINE Performing Organization Address City/[facility] DEPARTMENT OF [address] [place] [address] PATHOLOGY AND GENOMIC MEDICINE * Blood culture, aerobic & anaerobic (08/28/2018 7:44 PM BILINGUAL NANNY) Only the most recent of 2 results within the time period is included. Blood culture isolate No growth after 5 days of [facility] incubation. [facility] Comment: Specimen Information Specimen Source: Blood Specimen Site: RAC Specimen Blood Performing Organization Address City/State/[facility] Phone Number [facility] DEPARTMENT OF [address] [place] [address] PATHOLOGY AND GENOMIC MEDICINE [facility] [address] [place] [address] HOSPITAL * Comprehensive metabolic panel (08/28/2018 7:44 PM BILINGUAL NANNY) Sodium 133 (L) 135 - 150 mEq/L [facility] DEPARTMENT OF PATHOLOGY AND GENOMIC MEDICINE Potassium 3.1 (L) 3.5 - 5.0 mEq/L [facility] DEPARTMENT OF PATHOLOGY AND GENOMIC MEDICINE Chloride 95 (L) 98 - 112 mEq/L [facility] DEPARTMENT OF PATHOLOGY AND GENOMIC MEDICINE CO2 25 24 - 31 mmol/L [facility] DEPARTMENT OF PATHOLOGY AND GENOMIC MEDICINE Anion gap 13@ANIO 7 - 15 mEq/L [facility] DEPARTMENT OF PATHOLOGY AND GENOMIC MEDICINE BUN 8 7 - 18 mg/dL [facility] DEPARTMENT OF PATHOLOGY AND GENOMIC MEDICINE Creatinine 1.10 (H) 0.50 - 0.90 mg/dL [facility] DEPARTMENT OF PATHOLOGY AND GENOMIC MEDICINE Glucose 131 (H) 65 - 100 mg/dL [facility] DEPARTMENT OF PATHOLOGY AND GENOMIC MEDICINE Calcium 8.4 8.3 - 10.2 mg/dL [facility] DEPARTMENT OF PATHOLOGY AND GENOMIC MEDICINE Protein 7.2 6.3 - 8.3 g/dL [facility] DEPARTMENT OF PATHOLOGY AND GENOMIC MEDICINE Albumin 3.1 (L) 3.5 - 5.0 g/dL [facility] DEPARTMENT OF PATHOLOGY AND GENOMIC MEDICINE A/G ratio 0.8 0.7 - 3.8 [facility] DEPARTMENT OF PATHOLOGY AND GENOMIC MEDICINE Alkaline phosphatase 68 0 - 104 U/L [facility] DEPARTMENT OF PATHOLOGY AND GENOMIC MEDICINE AST 18 10 - 35 U/L [facility] DEPARTMENT OF PATHOLOGY AND GENOMIC MEDICINE ALT 15 5 - 50 U/L [facility] DEPARTMENT OF PATHOLOGY AND GENOMIC MEDICINE Total bilirubin 1.1 0.2 - 1.2 mg/dL [facility] DEPARTMENT OF PATHOLOGY AND GENOMIC MEDICINE Specimen Plasma specimen Performing Organization Address City/State/Zipcode Phone Number [facility] DEPARTMENT [address] [place] [address] PATHOLOGY AND GENOMIC MEDICINE after 02/17/2018 Insurance Payer Benefit Subscriber ID Type Phone Address Plan / Group BCBS BCBS OUT xxxxxxxxxxxxxxx PPO OF STATE Advance Directives Patient has advance care planning documents on file. For more information, elizabeth lucas contact: Esteban Vargas [address] [place] [address]
[2019-02-18] MEDS ORDERED: PROMETHAZINE HCL (IM) 25 MG/ML VIAL ONE (15:32)
[2019-02-18] MEDS ORDERED: MORPHINE SULFATE INJ 10 MG/ML ONE (17:59)
[2019-02-18] MEDS ORDERED: MIDAZOLAM HCL 2 MG/2 ML VIAL ONE (17:59)
[2019-02-18] MEDS ORDERED: PHENYLEPHRINE HCL 1% 10 MG/ML VIAL ONE (19:00)
[2019-02-18] MEDS ORDERED: CEFOXITIN SOD 1 GM VIAL ONE (19:00)
[2019-02-18 20:00] VITALS: BP 119/74
[2019-02-18] MEDS: CEFOXITIN 1GM/ D5W 50ML 50 ML IV SCH ×2 (20:20→23:37)
[2019-02-18 20:43] VITALS: BP 107/72
[2019-02-18 20:49] VITALS: BP 107/72
--- NOTE | 2019-02-18 22:12 | Operative Report ---
DATE OF PROCEDURE: 02/18/2019 SURGEON: Chacorta Quan MD PREOPERATIVE DIAGNOSIS: Cecal mass, rule out malignancy. POSTOPERATIVE DIAGNOSIS: Cecal mass, rule out malignancy, pending permanent section. OPERATION PERFORMED: Exploratory laparotomy, lysis of adhesion, and right ileocolectomy with frozen section. FEED RESEARCH AIDE: Dr. Srinivasa Quan and DUNG Dawson. ANESTHESIA: General. COMPLICATIONS: None. ESTIMATED BLOOD LOSS: 100 mL. DESCRIPTION OF PROCEDURE: With the patient lying in bed in the supine position under good general endotracheal anesthesia, the abdomen was prepped with Betadine solution and draped in the usual manner. A midline incision was made, was carried down through the subcutaneous tissue and through the midline fascia. The peritoneum was opened and the abdomen was entered. Exploration of the abdominal cavity revealed a palpable mass of the base of the cecum, which was about 3 to 4 cm in size. The liver was clean of any disease. The rest of the bowel was otherwise within normal limits except for a loop of sigmoid colon that was stuck to the uterus rather tightly. The patient had a previous myomectomy and this is probably adhesions. From that, those adhesions were taken down as this was creating a bridge that potentially could create a closed-loop bowel obstruction, so this was slowly and carefully taken down and the colon was from the uterus. The ovaries appeared to be within normal limits. We decided to go ahead and mobilize the right colon to better be able to examine the lesion at the base of the cecum. The right colon was then mobilized over the lateral gutter and swung medially. The hepatocolic ligament was divided and the colon was from the duodenum and swung medially without any difficulty. After this was done, examination revealed there was a hard mass at the base of the cecum. We could not actually visualize anything that appeared to be in normal appendix in any way shape or form. The mass was in the position, where the appendix would normally be found. This could potentially be some kind of a mucocele or some kind of inflammatory mass of the appendix or perhaps a carcinoid, so we decided to go ahead and do resection and get a frozen section. The mass was too close to the ileocecal valve to save the ileocecal valve. Therefore, the terminal ileum was divided with application of a DEYSI stapler. Similarly, the ascending colon was divided with an application of a DEYSI stapler. The mesentery was then divided with the EnSeal device and the specimen was sent for frozen section. Frozen section came back as some form of a benign inflammatory process of the appendix and we decided then no further resection would be needed to simply anastomose the bowel. The small bowel was then brought up to the ascending colon. An anastomosis was performed with another application of the DEYSI-75 stapler. The remaining opening was closed with a TA-60 stapler. Gloves and instruments were changed and the mesenteric rent was closed with a running suture of 2-0 Vicryl. The anastomosis was reinforced with 3-0 silk sutures. The abdomen was then copiously irrigated. Perfect hemostasis was ascertained and the abdomen was then closed in layers. The peritoneum was closed with a running suture of #1 Vicryl. The midline fascia was closed with a running suture of #1 Vicryl. The subcutaneous tissue was approximated with 2-0 chromic and the skin was closed with clips. A dressing was applied. The sponge, lap, and needle count was correct. The patient tolerated the procedure well and returned to the recovery room in stable condition. MD RATNA Leblanc/CRYSTAL /[id number]
[2019-02-19] VITALS (7 sets, daily range): BP systolic 112–119; BP diastolic 57–80
[2019-02-19] MEDS: DEXTROSE 5%/LACTATED RINGERS 1,000 ML IV SCH ×3 (00:30→15:38)
[2019-02-19 06:22] LABS: BASOPHILS % 0.1 % (0.0-1.0); HEMATOCRIT 35.2 % (34.2-44.1); HEMOGLOBIN 11.5 g/dL (12.0-16.0); LYMPHOCYTES # (AUTO) 0.9 (1.0-3.2); MEAN CORPUSCULAR HEMOGLOBIN 29.2 pg (28-32); MEAN CORPUSCULAR HGB CONC 32.7 g/dL (31-35); MEAN CORPUSCULAR VOLUME 89.3 fL (81-99); MONOCYTES # (AUTO) 1.1 (0.2-0.8); MONOCYTES % 7.9 % (4.4-11.3); NEUTROPHILS # (AUTO) 12.2 (2.1-6.9); NEUTROPHILS % 85.6 % (38.7-80.0); PLATELET COUNT 241 x10e3/uL (140-360); RED BLOOD COUNT 3.94 x10e6/uL (3.6-5.1); RED CELL DISTRIBUTION WIDTH 14.5 % (11.7-14.4)
[2019-02-19 06:35] LABS: ANION GAP 11.4 mmol/L (8-16); BLOOD UREA NITROGEN 9 mg/dL (7-26); BUN/CREATININE RATIO 12 (6-25); CALCIUM 8.8 mg/dL (8.4-10.2); CARBON DIOXIDE 23 mmol/L (22-29); CHLORIDE 104 mmol/L (98-107); CREATININE, SERUM 0.75 mg/dL (0.57-1.11); EST GLOMERULAR FILTRATION RATE > 60 ML/MIN (60-); GLUCOSE 110 mg/dL (74-118); POTASSIUM 4.4 mmol/L (3.5-5.1); SODIUM 134 mmol/L (136-145)
[2019-02-19] MEDS ORDERED: DIPHENHYDRAMINE HCL INJ 50 MG/ML VIAL IV ONE (09:15)
[2019-02-19] MEDS ORDERED: HYDROMORPHONE 0.2MG/ML-SOD CHL 30ML PCA SYRINGE IV PRN (09:15)
[2019-02-19] MEDS: ACETAMINOPHEN 1000 MG/100 ML IV SCH ×3 (10:48→23:32)
[2019-02-19] MEDS ORDERED: MORPHINE SULFATE INJ 4 MG/ML INJ 1ML IV PRN (12:00)
[2019-02-19] MEDS: PANTOPRAZOLE 40 MG 10ML VIAL IV SCH (14:47)
[2019-02-19] MEDS: DIPHENHYDRAMINE HCL INJ 50 MG/ML VIAL IV PRN (20:45)
[2019-02-19] MEDS ORDERED: HYDROMORPHONE 1MG/1ML INJ IV PRN (20:45)
[2019-02-19] MEDS: HYDROMORPHONE 2MG/ML 2 MG/ML ML IV PRN (20:46)
[2019-02-20] VITALS (7 sets, daily range): BP systolic 98–113; BP diastolic 55–69
[2019-02-20] MEDS: DEXTROSE 5%/LACTATED RINGERS 1,000 ML IV SCH ×3 (01:03→17:50)
[2019-02-20] MEDS: DIPHENHYDRAMINE HCL INJ 50 MG/ML VIAL IV PRN ×2 (04:54→10:41)
[2019-02-20] MEDS: ACETAMINOPHEN 1000 MG/100 ML IV SCH ×3 (04:54→17:50)
[2019-02-20] MEDS: HYDROMORPHONE 2MG/ML 2 MG/ML ML IV PRN ×2 (04:54→10:41)
[2019-02-20 05:54] LABS: BASOPHILS % 0.3 % (0.0-1.0); EOSINOPHILS % 0.5 % (0.0-6.0); HEMOGLOBIN 10.8 g/dL (12.0-16.0); LYMPHOCYTES # (AUTO) 1.9 (1.0-3.2); LYMPHOCYTES % 25.5 % (18.0-39.1); MEAN CORPUSCULAR HEMOGLOBIN 28.6 pg (28-32); MEAN CORPUSCULAR HGB CONC 31.8 g/dL (31-35); MEAN CORPUSCULAR VOLUME 90.2 fL (81-99); MONOCYTES # (AUTO) 0.7 (0.2-0.8); MONOCYTES % 9.1 % (4.4-11.3); NEUTROPHILS # (AUTO) 4.8 (2.1-6.9); NEUTROPHILS % 64.2 % (38.7-80.0); PLATELET COUNT 228 x10e3/uL (140-360); RED BLOOD COUNT 3.77 x10e6/uL (3.6-5.1); RED CELL DISTRIBUTION WIDTH 14.6 % (11.7-14.4)
[2019-02-20 06:16] LABS: ANION GAP 9.4 mmol/L (8-16); BLOOD UREA NITROGEN 6 mg/dL (7-26); BUN/CREATININE RATIO 8 (6-25); CALCIUM 8.7 mg/dL (8.4-10.2); CARBON DIOXIDE 25 mmol/L (22-29); CHLORIDE 104 mmol/L (98-107); CREATININE, SERUM 0.75 mg/dL (0.57-1.11); EST GLOMERULAR FILTRATION RATE > 60 ML/MIN (60-); GLUCOSE 117 mg/dL (74-118); POTASSIUM 3.4 mmol/L (3.5-5.1); SODIUM 135 mmol/L (136-145)
[2019-02-20] MEDS: CITALOPRAM HYDROBROMIDE 20 MG TAB PO SCH (09:00)
[2019-02-20] MEDS ORDERED: HYDROCODONE/APAP 7.5MG-325MG 1 EA TAB PO PRN (15:00)
[2019-02-20] MEDS: PANTOPRAZOLE 40 MG 10ML VIAL IV SCH (15:08)
[2019-02-20] MEDS: HYDROCODONE/APAP 7.5MG-325MG 1 EA TAB PO PRN ×2 (17:50→21:54)
[2019-02-20] MEDS: BISACODYL 10 MG SUPP PR SCH (20:12)
[2019-02-21] VITALS (7 sets, daily range): BP systolic 96–113; BP diastolic 62–72
[2019-02-21] MEDS: DEXTROSE 5%/LACTATED RINGERS 1,000 ML IV SCH ×3 (02:30→14:38)
[2019-02-21] MEDS: HYDROMORPHONE 2MG/ML 2 MG/ML ML IV PRN ×3 (05:10→14:47)
[2019-02-21] MEDS: DIPHENHYDRAMINE HCL INJ 50 MG/ML VIAL IV PRN ×2 (05:10→14:47)
[2019-02-21 07:07] LABS: BASOPHILS % 0.1 % (0.0-1.0); EOSINOPHILS # (AUTO) 0.2 (0.0-0.4); EOSINOPHILS % 1.9 % (0.0-6.0); HEMATOCRIT 33.6 % (34.2-44.1); HEMOGLOBIN 10.7 g/dL (12.0-16.0); LYMPHOCYTES # (AUTO) 1.3 (1.0-3.2); LYMPHOCYTES % 16.3 % (18.0-39.1); MEAN CORPUSCULAR HEMOGLOBIN 28.8 pg (28-32); MEAN CORPUSCULAR HGB CONC 31.8 g/dL (31-35); MEAN CORPUSCULAR VOLUME 90.3 fL (81-99); MONOCYTES # (AUTO) 0.7 (0.2-0.8); MONOCYTES % 8.8 % (4.4-11.3); NEUTROPHILS % 72.5 % (38.7-80.0); PLATELET COUNT 222 x10e3/uL (140-360); RED BLOOD COUNT 3.72 x10e6/uL (3.6-5.1); RED CELL DISTRIBUTION WIDTH 14.3 % (11.7-14.4)
[2019-02-21 07:21] LABS: ANION GAP 10.3 mmol/L (8-16); CALCIUM 8.9 mg/dL (8.4-10.2); CARBON DIOXIDE 26 mmol/L (22-29); CHLORIDE 104 mmol/L (98-107); CREATININE, SERUM 0.76 mg/dL (0.57-1.11); EST GLOMERULAR FILTRATION RATE > 60 ML/MIN (60-); GLUCOSE 104 mg/dL (74-118); POTASSIUM 3.3 mmol/L (3.5-5.1); SODIUM 137 mmol/L (136-145)
[2019-02-21 07:38] LABS: BLOOD UREA NITROGEN < 5 mg/dL (7-26)
[2019-02-21 07:39] LABS: BUN/CREATININE RATIO 7 (6-25)
[2019-02-21] MEDS: CITALOPRAM HYDROBROMIDE 20 MG TAB PO SCH (07:58)
[2019-02-21] MEDS: BISACODYL 10 MG SUPP PR SCH (07:58)
[2019-02-21] MEDS ORDERED: TRAMADOL HCL 50 MG TAB PO PRN (10:15)
[2019-02-21] MEDS: PANTOPRAZOLE 40 MG 10ML VIAL IV SCH (14:38)
[2019-02-21] MEDS: HYDROCODONE/APAP 7.5MG-325MG 1 EA TAB PO PRN (19:19)
[2019-02-22] VITALS (7 sets, daily range): BP systolic 99–119; BP diastolic 58–71
[2019-02-22] MEDS: HYDROMORPHONE 2MG/ML 2 MG/ML ML IV PRN ×2 (01:59→07:58)
[2019-02-22] MEDS: DIPHENHYDRAMINE HCL INJ 50 MG/ML VIAL IV PRN ×2 (01:59→07:58)
[2019-02-22] MEDS: CITALOPRAM HYDROBROMIDE 20 MG TAB PO SCH (07:58)
[2019-02-22] MEDS ORDERED: POTASSIUM CHLORIDE 20 MEQ TAB CR PO NR (09:30)
[2019-02-22] MEDS: DEXTROSE 5%/LACTATED RINGERS 1,000 ML IV SCH (10:42)
[2019-02-22] MEDS: PANTOPRAZOLE 40 MG 10ML VIAL IV SCH (14:14)
[2019-02-22] MEDS: HYDROCODONE/APAP 7.5MG-325MG 1 EA TAB PO PRN ×2 (14:14→23:17)
[2019-02-22] MEDS: CEFTRIAXONE SOD 1 GM/NS 50 ML 50 ML IV SCH (18:11)
[2019-02-22] MEDS: ACETAMINOPHEN 325 MG TAB PO PRN (19:42)
[2019-02-22] MEDS: BISACODYL 10 MG SUPP PR SCH (19:50)
[2019-02-23] VITALS: BP 122/72
[2019-02-23] MEDS: HYDROCODONE/APAP 7.5MG-325MG 1 EA TAB PO PRN (04:03)
[2019-02-23 04:05] VITALS: BP 111/65
[2019-02-23] MEDS: ACETAMINOPHEN 325 MG TAB PO PRN ×2 (05:27→12:18)
[2019-02-23 06:03] LABS: BASOPHILS % 0.2 % (0.0-1.0); EOSINOPHILS # (AUTO) 0.1 (0.0-0.4); EOSINOPHILS % 1.6 % (0.0-6.0); HEMATOCRIT 33.1 % (34.2-44.1); HEMOGLOBIN 11.1 g/dL (12.0-16.0); LYMPHOCYTES # (AUTO) 0.7 (1.0-3.2); LYMPHOCYTES % 8.3 % (18.0-39.1); MEAN CORPUSCULAR HEMOGLOBIN 29.1 pg (28-32); MEAN CORPUSCULAR HGB CONC 33.5 g/dL (31-35); MEAN CORPUSCULAR VOLUME 86.6 fL (81-99); MONOCYTES # (AUTO) 1.2 (0.2-0.8); MONOCYTES % 13.6 % (4.4-11.3); NEUTROPHILS # (AUTO) 6.6 (2.1-6.9); NEUTROPHILS % 75.8 % (38.7-80.0); PLATELET COUNT 229 x10e3/uL (140-360); RED BLOOD COUNT 3.82 x10e6/uL (3.6-5.1)
[2019-02-23 06:35] LABS: ANION GAP 11.6 mmol/L (8-16); BLOOD UREA NITROGEN 7 mg/dL (7-26); BUN/CREATININE RATIO 8 (6-25); CALCIUM 9.6 mg/dL (8.4-10.2); CARBON DIOXIDE 28 mmol/L (22-29); CHLORIDE 97 mmol/L (98-107); CREATININE, SERUM 0.83 mg/dL (0.57-1.11); EST GLOMERULAR FILTRATION RATE > 60 ML/MIN (60-); GLUCOSE 113 mg/dL (74-118); POTASSIUM 3.6 mmol/L (3.5-5.1); SODIUM 133 mmol/L (136-145)
[2019-02-23] MEDS: CITALOPRAM HYDROBROMIDE 20 MG TAB PO SCH (08:26)
[2019-02-23] MEDS: BISACODYL 10 MG SUPP PR SCH (08:26)
[2019-02-23 08:33] VITALS: BP 100/59
[2019-02-23 08:47] VITALS: BP 100/59
[2019-02-23 12:36] VITALS: BP 95/63
[2019-02-23] MEDS: PANTOPRAZOLE 40 MG 10ML VIAL IV SCH (14:24)
[2019-02-23 16:42] VITALS: BP 94/62
[2019-02-23] MEDS: CEFTRIAXONE SOD 1 GM/NS 50 ML 50 ML IV SCH (17:04)
[2019-02-23] MEDS ORDERED: LEVAQUIN500 MG PO (18:27)
== END 2019-02-23 18:52 | disposition home or self-care (01) | DRG 331 ==
LOC: OR 08:41 → PACU V 14:32 → MED/SURG 20:04
PROVIDERS: ADMIT Surgery; ATTEND Surgery
PROC: 0DTF0ZZ Resection of Right Large Intestine, Open Approach (ICD-10-PCS; 2019-02-18)
PROC: 0DNF0ZZ Release Right Large Intestine, Open Approach (ICD-10-PCS; principal; 2019-02-18 11:52)
DX: C18.0 Malignant neoplasm of cecum (principal); Z87.891 Personal history of nicotine dependence; R50.9 Fever, unspecified
CPT/HCPCS: 36415; 80048; 81025; 85025; 88307; 88331; J0694; J0696; J1200; J2250; J2270; J2370; J2405; J2550; J2765